=== PATIENT | female | born 1935 | race Caucasian/White ===

== ENCOUNTER 2019-02-08 05:52 | Inpatient (IN) ==
--- NOTE | 2019-02-08 06:27 | PROVIDER DOCUMENTATION ---
HPI-General Adult - General Chief Complaint: Weakness Stated Complaint: leg pain Time Seen by Provider: 02/08/19 06:27 Source: patient Allergies/Adverse Reactions: Patient Allergies Allergy/AdvReac Type Severity Reaction Status Date / Time cefaclor [From Ceclor] Allergy Severe RASH Verified 02/08/19 06:47 cephalexin monohydrate * Allergy Severe RASH Verified 02/08/19 06:47 [From Keflex] doxycycline Allergy Severe RASH Verified 02/08/19 06:47 erythromycin base Allergy Severe NAUSEA/VOMI Verified 02/08/19 06:47 [Erythromycin Base] TING Penicillins Allergy Severe RASH Verified 02/08/19 06:47 tetracycline [Tetracycline] Allergy Severe RASH Verified 02/08/19 06:47 chlorpheniramine maleate * Allergy Intermediate Unknown Verified 02/08/19 06:47 [From Endal] codeine [From Endal] Allergy Intermediate Unknown Verified 02/08/19 06:47 codeine phosphate * Allergy Intermediate Unknown Verified 02/08/19 06:47 [From Endal] guaifenesin [From Endal] Allergy Intermediate Unknown Verified 02/08/19 06:47 loratadine Allergy Intermediate DIARRHEA Verified 02/08/19 06:47 [From Claritin-D 12 Hour] phenylephrine HCl * Allergy Intermediate Unknown Verified 02/08/19 06:47 [From Endal] phenylpropanolamine HCl * Allergy Intermediate Unknown Verified 02/08/19 06:47 [From Endal] pseudoephedrine sulfate * Allergy Intermediate DIARRHEA Verified 02/08/19 06:47 [From Claritin-D 12 Hour] apple [Apple] Allergy Unknown RASH Verified 02/08/19 06:47 celery [Celery] Allergy Unknown Unknown Verified 02/08/19 06:47 peanut Allergy Unknown Unknown Verified 02/08/19 06:47 grains Allergy Intermediate RASH Uncoded 02/08/19 06:47 Home Medications: Home Medication List Medication Instructions Recorded Confirmed Last Taken Type Fish Oil/Dha/Epa [Fish Oil 1,200 1 each PO TID 08/04/12 02/08/19 10/11/17 14:00 History mg Fish Oil] Fluticasone 27.5 Mcg Nasal Spr 4.5 gm MISC BID 08/04/12 02/08/19 10/11/17 07:00 History [Veramyst Nasal [place]] Hydralazine [Apresoline] 25 mg PO QAM 10/08/12 04/14/19 12/15/17 07:00 History Lisinopril 20 mg PO DAILY 08/04/12 02/08/19 10/11/17 07:00 History Metoclopramide [Reglan] 10 mg PO QHS 08/04/12 02/08/19 10/10/17 20:00 History Montelukast [Singulair] 10 mg PO DAILY 08/04/12 02/08/19 10/11/17 07:00 History Multivitamin/Iron/Folic Acid 1 each PO DAILY 08/04/12 02/08/19 10/11/17 07:00 History [Multi Complete-Iron Tablet] Olopatadine HCl [Patanase] 30.5 gm NS BID 08/04/12 02/08/19 09/04/12 09:00 History Polyethylene Glycol 3350 [Miralax] 527 gm PO DAILY 08/04/12 02/08/19 10/11/17 07:00 History Sucralfate [Carafate] 1 gm PO TID 08/04/12 02/08/19 10/11/17 14:00 History Warfarin [Coumadin] 5 mg PO QHS #30 tablet 09/05/12 02/08/19 10/10/17 20:00 Rx Albuterol Sulfate Inhaler 2 puff INH Q6H PRN PRN 10/11/17 02/08/19 Unknown History [Ventolin Hfa] Alprazolam 0.5 mg PO BID 10/11/17 02/08/19 10/11/17 07:00 History Bisacodyl 10 mg RC PRN PRN 10/11/17 02/08/19 Unknown History Fexofenadine [Nae] 180 mg PO DAILY 10/11/17 02/08/19 10/11/17 07:00 History Furosemide [Lasix] 80 mg PO DAILY 10/11/17 02/08/19 10/11/17 07:00 History Guaifenesin [Mucinex] 600 mg PO Q12HR 10/11/17 02/08/19 10/11/17 07:00 History Mometasone Nasal [place] [Nasonex 1 puff CHON BID 10/11/17 02/08/19 10/11/17 07:00 History Nasal [place]] Tramadol HCl [Ultram] 50 mg PO BID 10/11/17 02/08/19 10/11/17 07:00 History Umeclidinium Prim [Incruse 1 puff IH DAILY 10/11/17 02/08/19 10/11/17 07:00 History Ellipta] - History of Present Illness -Gen Adult Nature of Presenting Problems: Pt is a 83 y/o female who presents with c/o pain in her legs and generalized weakness. As per the pt she felt weak and could not get out of her chair and hence called EMS. The pt also c/o pain in her legs and they have been getting big. Has been more SOB than usual. Denies any CP or fever. Per pt was treated with abxs last week and thought she was getting better, but today she felt extremely weak. Denies any GI or urinary symptoms. Pt has hx of PE And is currently on coumadin. Location of Pain/Injury: reports: none Pain Radiation: reports: no radiation Quality of Pain: reports: aching Severity: reports: moderate Onset/Duration: reports: abrupt, just prior to arrival Timing: reports: still present Context/Activities at Onset: reports: light activity Modifying Factors: improves with: nothing Associated Symptoms: reports: denies symptoms, fatigue, shortness of breath. denies: chest pain, cough Similar Symptoms Previously?: No Recently seen or treated by another doctor?: No Review of Systems - Adult - REVIEW OF SYSTEMS - ADULT Constitutional: reports: see HPI Eyes: reports: no symptoms reported Ears, Nose, Mouth & Throat: reports: no symptoms reported Cardiovascular: reports: see HPI Respiratory: reports: see HPI Gastrointestinal: reports: no symptoms reported Genitourinary: reports: no symptoms reported Musculoskeletal: reports: muscle weakness Integumentary: reports: no symptoms reported Neurological: reports: no symptoms reported Psychiatric: reports: no symptoms reported Endocrine: reports: no symptoms reported Hematologic/Lymphatic: reports: no symptoms reported Allergic/Immunologic: reports: no symptoms reported All Other Systems: Reviewed and Negative Past History - Adult - PAST MEDICAL HISTORY-ADULT Review of Records: reports: Old Records Reviewed, Nursing Assessment Review Cardiovascular: reports: CHF Respiratory: reports: COPD Physical Exam-General - PHYSICAL EXAM-ADULT Initial Vital Signs Reviewed: Yes - CONSTITUTIONAL General Appearance: alert, no apparent distress - EYES Eyes: PERRL/EOMI - HEAD, EARS, NOSE, MOUTH & THROAT HENMT: normocephalic/atraumatic, moist mucous membranes - NECK Neck: supple - RESPIRATORY Respiratory: lungs clear, crackles (at lung bases) - CARDIOVASCULAR Cardiovascular: normal peripheral pulses, regular rate, rhythm, no JVD, other (3+ pitting pedal edema). negative: no edema - GASTROINTESTINAL (ABDOMEN) Abdominal Exam: normal bowel sounds, non tender - GENITOURINARY Rectal Exam: normal exam (no stool in rectum) - MUSCULOSKELETAL Back Exam: no CVA tenderness Extremity: pedal edema - SKIN Integumentary: pallor - NEUROLOGIC Neurologic: grossly normal - PSYCHIATRIC Psych/Mental Status: normal mood/affect, oriented x 3 Progress - PLAN OF CARE/RESULTS Progress/Plan/Lab Results: Vital Signs - 8 hr 02/08/19 06:17 Temperature 99.1 F Pulse Rate 70 Respiratory Rate 22 Blood Pressure 101/78 O2 Sat by Pulse Oximetry 100 pt has Hemoglobin of 5.9, will get PT/INR, PTT, Type and screen, stool for occult blood. Will transfuse 2 units of PRBC. 07:[address] Pt signed out to Dr Pineda. Result Diagrams: 02/14/19 04:57 02/14/19 04:57 - CONSULTS/PCP/HOSPITALIST Notification #1 *Consult/PCP/Hospitalist*: Gely HANKS Time Discussed: 09:29 Consult Disposition: Will see in ED Departure - Departure Date of Disposition Decision: 02/08/19 Time of Disposition Decision: 09:32 DIAGNOSIS: Severe anemia Disposition: ADMITTED INPATIENT 09 Certified Medical Emergency: Emergent Condition: Stable - Critical Care Note This patient required my direct & personal management of CC.: No Attestation - Physician/ [facility] Attestation Patient care was provided by Advanced Practice Provider:: No The physician spent face to face time with patient:: Yes Advanced Practice Provider documentation review:: Supervising physician onsite and consulted in the evaluation and care of this patient. The physician did have a face to face encounter with the patient.
--- NOTE | 2019-02-08 06:54 | Diag Imaging Result Doc PS360 ---
EXAM: CHEST-1 VIEW 02/08/2019 HISTORY: SOB TECHNIQUE: AP portable at 0639 COMMENT: There is cardiomegaly. There is a prominent epicardial fat pad on the left. Considering differences in technique and inspiration there has been no significant change since 04/23/2018. IMPRESSION: Cardiomegaly. Electronically signed by Hill Brewster 02/08/2019 6:51 AM
[2019-02-08 07:19] LABS: BASO# 0.03 X1000 (0.0-0.2); BASO% 0.3 % (0.0-0.8); EOS# 0.27 X1000 (0.0-0.7); EOS% 2.3 % (0.0-10.0); HEMATOCRIT 19.9 % (37.0-47.0); LYMPH% 12.1 % (20.5-51.1); MCH 25.3 PG (27-31); MCHC 29.6 g/dL (33-37); MCV 85.4 FL (81-99); MONO# 0.98 X1000 (0.11-0.59); MONO% 8.5 % (1.7-9.3); MPV 10.2 FL (7.4-10.4); NEUT# 8.88 X1000 (1.4-6.5); NEUT% 76.8 % (42.2-75.2); PLT 395 X1000 (130-400); RBC 2.33 XMIL (4.2-5.4); RDW 18.1 % (11.5-14.5); WBC 11.56 X1000 (4.8-10.8)
[2019-02-08 07:22] LABS: HEMOGLOBIN 5.9 g/dL (12.0-16.0)
[2019-02-08 07:32] LABS: ALB/GLOB RATIO 0.9; ALBUMIN 3.4 g/dL (3.5-5.0); CALCIUM 9.5 mg/dL (8.8-10.2); POTASSIUM 4.4 mmol/L (3.5-5.1); TOTAL BILIRUBIN 0.27 mg/dL (0.20-1.00); TOTAL PROTEIN 7.1 g/dL (6.3-8.3)
[2019-02-08 07:44] LABS: URINE SOURCE CATH
[2019-02-08 07:57] LABS: BILIRUBIN URINE NEGATIVE (NEGATIVE); BLOOD URINE NEGATIVE (NEGATIVE); COLOR YELLOW; GLUCOSE URINE NEGATIVE (NEGATIVE); KETONE URINE NEGATIVE (NEGATIVE); LEUKOCYTES URINE SMALL (NEGATIVE); NITRITE URINE NEGATIVE (NEGATIVE); PH URINE 5.5; PROTEIN URINE TRACE mg/dL (NEGATIVE); SP GRAVITY URINE 1.013; TURBIDITY URINE HAZY (CLEAR); UROBILINOGEN URINE NORMAL (NORMAL)
[2019-02-08 07:58] LABS: UR EPITHELIAL CELLS >10 /HPF (<10); URINE BACTERIA NEGATIVE /HPF; URINE RBC <10 /HPF (<10)
[2019-02-08 08:08] LABS: INR 2.37; PROTIME 27.6 Seconds (11.0-16.0)
[2019-02-08 08:09] LABS: PTT 69.8 Seconds (22.3-41.8)
[2019-02-08] MEDS ORDERED: VITAMIN K 10 MG in NS 50 ML IV ONE (09:41)
[2019-02-08] MEDS ORDERED: TYLENOL PO PRN (09:52)
[2019-02-08] MEDS ORDERED: NS 1,000 ML ONE (09:55)
[2019-02-08 09:58] LABS: RETIC% 4.01 % (0.8-2.1); RETIC-HE 23.2 PG (28.2-36.6)
[2019-02-08 10:20] LABS: IRON SATURATION 9 %; TIBC 329 ug/dL; TOTAL IRON 28 ug/dL (49-151); UNBOUND IRON 301 ug/dL (112-346)
[2019-02-08 10:32] LABS: UR CREAT RANDOM 97.2 mg/dL (11-20)
[2019-02-08 10:35] LABS: FERRITIN 15 ng/mL (13-150)
[2019-02-08] MEDS ORDERED: VENOFER 500 MG in NS 250 ML IV ONE (10:44)
[2019-02-08] MEDS: NS 1,000 ML IV SCH ×2 (10:50→23:13)
[2019-02-08] MEDS: DUONEB (A & A) INH SCH ×4 (10:53→22:44)
--- NOTE | 2019-02-08 10:55 | Diag Imaging Result Doc PS360 ---
EXAM: US RENAL 2 (RETROPER) COMPLETE 02/08/2019 HISTORY: dee TECHNIQUE: Renal ultrasound COMMENT: There is a 3 cm stone in the gallbladder. The right kidney is 8 x 3.7 x 4.2 cm the left is 8.3 x 4.5 x 5 cm. The urinary bladder is not distended. There is no evidence of hydronephrosis or mass. IMPRESSION: No evidence of obstructive uropathy. Cholelithiasis. Electronically signed by Hill Brewster 02/08/2019 10:53 AM
--- NOTE | 2019-02-08 11:00 | Diag Imaging Result Doc PS360 ---
EXAM: US ABDOMEN-COMPLETE 02/08/2019 HISTORY: severe anemia; MAGALY TECHNIQUE: Abdominal ultrasound COMMENT: The study is technically suboptimal due to the patient's body habitus and clinical condition. There is a large stone in the neck of the gallbladder measuring almost 3 cm in diameter. There is no evidence of para cholecystic fluid or wall thickening. There is no sonographic Gallardo sign. The aorta, inferior vena cava, and pancreas are not well demonstrated. The liver is slightly heterogeneous in echotexture, and is not entirely well demonstrated. There are no abnormal fluid collections. The common bile duct is measured at 7 mm. There is a 3.2 cm cyst arising from the anterior left renal cortex. The spleen is enlarged measuring 13.9 cm. The portal vein could not be evaluated. IMPRESSION: Cholelithiasis. Splenomegaly. Hepatic steatosis versus cirrhosis. Electronically signed by Hill Brewster 02/08/2019 10:57 AM
[2019-02-08] MEDS: PROTONIX 80 MG in NS 80 ML IV SCH ×2 (12:01→20:45)
[2019-02-08 12:09] LABS: HEMOGLOBIN A1C 4.6 % (4.8-6.0)
--- NOTE | 2019-02-08 12:31 | GASTROENTEROLOGY CONSULTATION ---
DATE: 02/08/2019 CONSULTING PHYSICIAN: Dr. Cole. REASON FOR CONSULT: Severe anemia. HISTORY: This is an 83-year-old, white female who carries a diagnosis of CHF and has history of pulmonary embolism, and has been on warfarin. She was brought to the emergency room after she was unable to get up from her chair, and she has been very weak and lethargic with these complaints. When she was evaluated in the emergency room, she was found to have severe anemia. Her hemoglobin was 5.9 with a hematocrit of 19.9. On further questioning, she did say that she has had a "virus" and had an episode of nausea, vomiting, and diarrhea for a day. She did have some dark stool which she thought she was having dark stool because she has been drinking a lot of marcelo juice and prune juice along with the red meat. She has not seen any bright red blood per rectum but has had some epistaxis. She tells me that she has been blowing her nose and has seen the bright red blood on the tissue. She has recently been on antibiotics for a "sinus infection". Her last dose was yesterday. She, however, denies any abdominal pain or abdominal cramps. Has not had any indigestion. Denies any heartburn or reflux symptoms. Has not had any dysphagia or odynophagia. Her appetite is good. She is eating well and she has not lost any weight. She denies any dysuria but has polyuria. Denies any hematuria. She has not had any fever or chills. Has not had any headache or dizziness but has felt very weak. She has been complaining of some sore throat. Denies any sores in her mouth. She denies any problem with vision. PAST MEDICAL HISTORY: Significant for COPD and CHF. Also reports that she has history of pulmonary embolism and has been on long-term anticoagulation. SOCIAL HISTORY: She lives by herself. Does not smoke. Does not drink. Does not do illicit drugs. FAMILY HISTORY: Noncontributory. HOME MEDICATIONS: She has been on albuterol, alprazolam, bisacodyl, Nae, fish oil, fluticasone, Lasix, Mucinex, Apresoline, lisinopril, Reglan, Singulair, multivitamin, PATANASE, MiraLAX, Carafate, Ultram, warfarin, and Ellipta. ALLERGIES: Claims to be allergic to multiple medication. Lists were reviewed and they were reviewed in the chart and the computer. REVIEW OF SYSTEMS: As per HPI as above. PHYSICAL EXAMINATION: On examination, very pleasant, white female, overweight. She is lying in bed. She is conscious, alert, appears to be in no distress. Vitals: Temperature 97.3 degrees, pulse 81 per minute, breathing 18, blood pressure 115/81. She weighs about 225 pounds. Head is atraumatic, normocephalic. Eyes: Conjunctivae are pale. Sclerae anicteric. Nares are patent. No discharge. Has got nasal cannula in place. Mouth: Buccal mucosa is moist. Throat is normal. Neck is supple. No lymphadenopathy or thyromegaly. Chest: Bilaterally symmetrical. It is moving with respirations. Breath sounds are audible bilaterally. No rhonchi or crepitations could be heard. Heart: S1 and S2 are audible. No murmur could be appreciated. Abdomen is obese but soft and nontender. I could not appreciate masses or visceromegaly. No ascites noted. Bowel sounds are audible. No pedal edema, cyanosis, or clubbing was noted. [employer] was grossly intact. No sensory or motor deficit. LABORATORY DATA: Labs reviewed which showed WBC of 11.56, hemoglobin 5.9, hematocrit 19.9, MCV 85.4, platelets were 395,000. PTT was 27.6, INR 2.37, PTT 69.8, with D-dimer of 2.85. Sodium 139, potassium 4.4, chloride 102, bicarb is 25, BUN is 64, creatinine 3.0, glucose 119. Transaminases were normal. Albumin was 3.4. Urinalysis is negative. Ultrasound of the abdomen shows evidence of cholelithiasis. She has about a 3 cm diameter stone in the neck of the gallbladder without any evidence of acute cholecystitis. She does have evidence of splenomegaly and possible hepatic steatosis. Renal ultrasound was also done today which revealed no evidence of obstructive uropathy. IMPRESSION: This is an 83-year-old, white female who has been on Coumadin for her history of pulmonary embolism as claimed by the patient. She has been on an antibiotic for 7 days. The last dose was yesterday. Has presented with a history of dark stool and was found to be anemic. Most likely, she has acute gastrointestinal bleed and anemia secondary to gastrointestinal bleed. She apparently appears to have lost a significant amount of blood. She has been symptomatic. She has had symptomatic anemia. She does not seem to be actively bleeding now. She is in the process of getting hemodynamic resuscitation. She is receiving fluid. Blood has been ordered for transfusion. She has also been scheduled to start proton pump inhibitor infusion. I would continue the current management and continue to reverse her coagulopathy which is secondary to Coumadin. Then, when stabilized, she may benefit from endoscopic evaluation for diagnostic and therapeutic purposes. She apparently has never had an esophagogastroduodenoscopy or colonoscopy. I have explained to her the findings and plan. She understands. She is reluctant to proceed at this point. She will be followed. An urgent endoscopy may be required if she shows any signs of acute hemorrhage. cc: MD Gal Bernal MD
--- NOTE | 2019-02-08 13:08 | HISTORY AND PHYSICAL ---
PRIMARY CARE PHYSICIAN: Dr. Gal Lainez PRIMARY ROOF BOLTER: Dr. Villeda PRIMARY REHABILITATION CONSTRUCTION SPECIALIST: Dr. Hartley CHIEF COMPLAINT: Weakness, lower extremity achiness and swelling and just worsening fatigue and weakness. HISTORY OF PRESENT ILLNESS: Ms. Nancy Pool is an 83-year-old female with a history of morbid obesity and a BMI of 38.6, congestive heart failure, COPD or asthma, peptic ulcer disease, pulmonary emboli on Coumadin therapy and that was diagnosed in 2011, is now here with complaints of 6 to 8 months' worth of weakness and fatigue that has just progressively been worsening. Apparently she could not get out of the chair today and had to call paramedics. She lives alone. She does have a neighbor who helps her out. She stays short of breath, so that is no change. She states she has not been in a bed to sleep for 5 years because she sleeps sitting straight up. Her legs have been achy and more swelling, a little redness in the lower extremities. No open wounds, though. She does have sacral wounds that she has complained about which we will visualize once she is in a room with some privacy. She states that she has been having black stools for years but denies any bright red blood. She did have, around 1 or 2 weeks ago, she states that she was sick with vomiting and diarrhea but could not tell me the color. She also says around a week ago she was diagnosed with a sinus infection because she had head congestion with head which she was initiated on antibiotics, but I do not believe she went into her primary care provider's office for the diagnosis. She has been essentially homebound and receiving home health, and I think all communication and assessment is done through the home health nurse. The antibiotic is unknown at this time. She is not sure what all of her medications are. Evaluation of the weakness and fatigue, she had a CBC which revealed that she had a hemoglobin of 5.9 and hematocrit of 19.9. Hemodynamics are actually stable. She is on the Coumadin, and the INR is in range of 2.37. No obvious signs of bleeding. The stool for the occult blood was actually negative, although she states that she has had black stools for years. She has an elevated D-dimer and with the history of PE from 2011, a VQ scan of the chest was ordered, and she is refusing that. Given the abdominal tenderness with palpation and the black stools for years and the anemia, a CT of the abdomen and pelvis was ordered, which she refused that as well, even after being offered Ativan to help with her nerves. She is going for an ultrasound of the abdomen and an ultrasound of the lower extremities. With her report of congestive heart failure and the lower extremity edema swelling, she will have an echocardiogram as well. For the anemia, we are going to reverse the Coumadin with vitamin K, and she is going to receive 2 units of packed red blood cells. She is with an elevated white blood cell count but no obvious source of infection at this time. A lactate has been ordered but not resulted yet. Chest x-ray does not reveal any pneumonia. The urinalysis does not reveal any UTI, so she will have blood cultures pending, and it could be sacral decubitus or it could be lower extremity cellulitis, as there is some redness in the lower extremities. We will transfer her to [facility] for closer observation and continued workup. We will also consult Gastroenterology. Also noted that she is in acute kidney injury with a creatinine of 3.0, and it looks like she does have a history of CKD stage 3 at least since 2012 or even 2011, but she is acute on chronic kidney disease. PAST MEDICAL HISTORY: 1. Allergic rhinitis. 2. Asthma/COPD. 3. Peptic ulcer disease. 4. GERD. 5. Gout. 6. Hypertension. 7. Depression. 8. CKD stage 3. 9. History of PE in 2011. 10.Congestive heart failure reported. 11.Morbid obesity with a BMI of 38.6. PAST SURGICAL HISTORY: Umbilical hernia repair. SOCIAL HISTORY: Denies tobacco, alcohol or illicit drug use. She lives at home by herself with her dog. She has neighbors that are available for assistance. She uses a walker at home to get around. With her first , they did farming and logging, otherwise no work, and they did not have any children. FAMILY HISTORY: Her mother was in the 80s with a myocardial infarction. Her father was 62 with a myocardial infarction. Her brother was 62 with a myocardial infarction. She knows of no other medical history from her family. ALLERGIES: Ceclor, Keflex, doxycycline, erythromycin, penicillin, tetracycline, Endal, codeine, guaifenesin, Claritin D, phenylephrine, phenylpropanolamine, pseudoephedrine, apples, celery, peanuts and grains. HOME MEDICATIONS: She takes albuterol 2 puffs every 6 hours p.r.n., Xanax 0.5 mg p.o. twice daily, bisacodyl 10 mg suppository p.r.n., Nae 180 mg p.o. daily, fish oil 1200 mg p.o. t.i.d., fluticasone 4.5 g twice a day, Lasix 80 mg p.o. daily (we are going to hold that). Apparently she has been taking guaifenesin 600 mg p.o. every 12 hours, but that is actually listed on her allergies, and we are going to hold that. Apresoline 25 mg p.o. daily, we will hold that. Lisinopril 20 mg p.o. daily, we are going to hold that as well. Reglan 10 mg p.o. night, and we can continue that. Nasonex 1 puff twice daily, and we can continue that. Singular 10 mg p.o. daily continue. Multivitamin with iron once daily, we will continue. Patanase 30.5 g nasally twice daily, we will continue that. MiraLAX 17 g p.o. daily, continue. Carafate 1 g p.o. t.i.d., we have already continued that with an increased frequently. Ultram 50 mg p.o. twice daily. Ellipta 1 puff daily, hold that. Coumadin 5 mg p.o. nightly, hold that. REVIEW OF SYSTEMS: A 14-point review of systems are complete, and all were negative except for those mentioned in the above HPI. She denies taking any medications that are kidney damaging or can cause increased risk for stomach ulcer such as ibuprofen, she denies. PHYSICAL EXAMINATION: VITAL SIGNS: Temperature is 98.4, heart rate 72, respiratory rate 19, blood pressure 121/58, O2 saturation is 100% on 3 L nasal cannula. GENERAL: Ms. Nancy Pool is an 83-year-old female. She is in no acute distress. She is able to answer questions appropriately. HEENT: Atraumatic and normocephalic. Pupils are equal, round and reactive to light. Extraocular movements were intact. Mucous membranes are dry. NECK: Trachea midline. CARDIOVASCULAR: S1 and S2. Regular rate and rhythm. No rubs, gallops or murmurs. There is 2+ lower extremity edema. There are +3 dorsalis pedal pulses, +2 radial pulses. Negative JVD or carotid bruits. PULMONARY: Clear to auscultation with bilateral breath sounds. No accessory muscle use or work of breathing noted and tolerating 3 L nasal cannula. GASTROINTESTINAL: Soft in all 4 quadrants, tender in all 4 quadrants, but she is more tender in the bilateral upper quadrants. Positive bowel sounds x4 but hypoactive. NEUROLOGICAL: Alert and oriented x3. Follows commands. Decrease in strength in the lower extremities with tenderness. SKIN: Warm, dry and intact except for lower extremities. Also reported sacral wounds. We will have to review that once she is in a private situation. We will assess that. Reported yeast in her abdominal folds and groin folds. Also bilateral lower extremities with redness of the skin, scaliness and poor hygiene of the feet. DIAGNOSTIC DATA: White blood cells 11,000, hemoglobin 5.9, hematocrit 19.9, platelet count 395. INR is 2.37. PTT is 69.8. D-dimer is 2.85. Sodium is 139, potassium 4.4, BUN is 64, creatinine 3.0, glucose 119, calcium 9.5. Iron is 28, total iron binding capacity is 329, saturation 9, ferritin 15. Bilirubin 0.27, AST is 26, ALT is 11, LDH is 197. ProBNP is 297. Albumin 3.4. Vitamin B12 is 802. Folate 6.5. Urinalysis with trace protein, small leukocytes, 10 to 20 white blood cells. Urine random creatinine is 97.2, urine protein 24.2, urine sodium 37, random urea of the urine is 731. IMAGING: Abdominal ultrasound with cholelithiasis, splenomegaly, hepatic steatosis versus cirrhosis. Renal ultrasound with no evidence of obstructive uropathy, cholelithiasis. Chest x- ray with cardiomegaly. ASSESSMENT AND PLAN: 1. Severe anemia, now with iron deficiency anemia, possible anemia from GI blood loss, with peptic ulcer disease history and reports of black stool despite negative Hemoccult. Anemia possibly from blood loss due to Coumadin therapy for PE. We will serial hemoglobin and hematocrit. She is going to get 2 units of packed red blood cells. She is going to get a dose of 500 mg of IV iron. She has some folate deficiency. We will give her IV folic acid. She refused an abdominopelvic CT due to severe anxiety, so she will be on a Protonix drip. Clear liquids for now. Carafate scheduled. N.p.o. after midnight. Withholding Coumadin for now, and Coumadin is going to be reversed with vitamin K. The abdominal ultrasound shows cholelithiasis, splenomegaly and hepatic steatosis versus cirrhosis. 2. Acute kidney injury on top of chronic kidney disease stage 3. We will get some IV fluid hydration. Iron studies performed. Renal ultrasound does not show any obstructive uropathy. It does show some cholelithiasis. 3. History of pulmonary emboli. Continues with shortness of breath, lower extremity swelling with some redness and achiness, with an elevated D-dimer. Coumadin is being held due to the severe anemia. She is refusing to have a VQ scan. Of course, she is still refusing for CT scan, but her kidney function is too bad for a CTA of the pulmonary artery system. So all we can do right now is get an ultrasound of the lower extremities to follow up for clot. 4. Leukocytosis. Urinalysis is negative for urinary tract infection. Chest x- ray is negative for pneumonia. Blood cultures have been ordered. The lower extremities possibly some cellulitis but is not extremely obvious. They are warm and red and tender. But she also has complaints of sacral wounds and yeast in her folds, which we will get Wound Care to see her for. There is a possibility there could be some sort of infection from that. She was not in a situation where she could be assessed, but we will get her assess on her sacrum and her abdominal folds in privacy. She just finished taking antibiotics for what she says was a sinus infection, completed today. 5. Hyperglycemia but denies having diabetes. We will do a hemoglobin A1c. 6. Asthma or chronic obstructive pulmonary disease. Continue with nebulizers, bronchodilators, and oxygen as needed. I would not doubt if there is some form of obstructive sleep apnea given her body habitus but no CPAP at home. 7. Hypertension. We are going to hold her home medications, as they can be harmful to the kidneys for now, but her blood pressure is stable, not extremely elevated. 8. Gastroesophageal reflux disease with peptic ulcer disease, of course on a proton pump inhibitor. 9. Bilateral lower extremity cellulits. Will start IV antibiotic therapy. 10. Depression. We will continue her antidepressants. 11.Allergic rhinitis. Continue her medications for that. 12.Morbid obesity with a body mass index of 38.6. Discussion of an appropriate diet and exercise. She states she tries to get up as much as she can, but she is alone. She does get home health. She uses a walker, but she has progressively gotten weaker, so we are going to have Physical Therapy help her with that. 13.Progressive weakness. Again, physical therapy. But it is likely due to the anemia. 14.DVT prophylaxis with SCDs given the severe anemia. 15.Reported sacral decubitus. Wound Care consulted. Apparently yeast in the folds. Dictated by LATONYA Haro for Jami Cole MD cc: LATONYA Haro MD Alan Walker, MD I performed a face to face encounter on the patient. I reviewed all labs and imaging on the patient. I agree with the H&P as dictated. The patient states that she called the EMS because she discovered that she could not get out of bed today due to severe weakness. She states that she lives alone and takes care of herself. On exam, the patient is alert and oriented x 3. She is morbidly obese with multiple skin folds. Her breath sounds are clear to auscultation bilaterally. Her lower extremities are erythematous with dry flaking skin. No edema noted. The patient was noted to have a hemoglobin of 5.9. She denied having blood in her stool. The patient will be admitted to the CICU and will receive 2 units of packed red blood cells and be started on a protonix drip. GI has been consulted. Will also initiate antibiotics for the lower extremity cellulitis. She will also receive gentle IVF hydration due to her acute kidney injury. Will avoid nephrotoxic medications. The patient reports that she wants to be a DNR level 1 and that code status has been updated in the computer. SHANNAN
--- NOTE | 2019-02-08 13:42 | Diag Imaging Result Doc PS360 ---
EXAM: LUNG SCAN / VQ 02/08/2019 HISTORY: h/o PE; elevated ddimer; severe anemia TECHNIQUE: Ventilation/perfusion lung scan, 38.9 mCi of technetium 99m DTPA aerosol and 5.8 mCi of technetium 99m MAA intravenously. COMMENT: There are limited number of views due to the patient's claustrophobia. There is no evidence of ventilation/perfusion mismatch or perfusion defect. IMPRESSION: Low probability for pulmonary embolus. Electronically signed by Hill Brewster 02/08/2019 1:40 PM
[2019-02-08 16:03] LABS: HEMATOCRIT 22.5 % (37.0-47.0); HEMOGLOBIN 6.7 g/dL (12.0-16.0)
[2019-02-08] MEDS: CARAFATE LIQUID PO SCH ×2 (16:07→20:44)
[2019-02-08] MEDS: PULMICORT INH SCH (19:38)
[2019-02-08] MEDS: ZOFRAN IV PRN (19:59)
[2019-02-08 20:10] LABS: HEMATOCRIT 24.4 % (37.0-47.0); HEMOGLOBIN 7.6 g/dL (12.0-16.0)
[2019-02-08] MEDS: FLONASE MISC SCH (20:44)
[2019-02-08] MEDS: XANAX PO SCH (20:44)
[2019-02-08] MEDS: PATIENT'S OWN MED NAS SCH (20:48)
[2019-02-08] MEDS ORDERED: ULTRAM PO SCH (21:00)
[2019-02-08] MEDS ORDERED: NASONEX NASAL SPRAY NAS SCH (21:00)
[2019-02-08] MEDS ORDERED: REGLAN PO SCH (21:00)
[2019-02-08] MEDS: AZACTAM 0.5 GM in NS 50 ML IV SCH (22:01)
[2019-02-08] MEDS: FOLIC ACID 1 MG in NS 50 ML IV SCH (22:01)
[2019-02-09 01:30] LABS: HEMATOCRIT 25.3 % (37.0-47.0); HEMOGLOBIN 7.7 g/dL (12.0-16.0)
[2019-02-09] MEDS: DUONEB (A & A) INH SCH ×6 (03:06→22:57)
[2019-02-09] MEDS: AZACTAM 0.5 GM in NS 50 ML IV SCH ×3 (03:20→21:16)
[2019-02-09] MEDS: CARAFATE LIQUID PO SCH ×4 (03:20→21:16)
[2019-02-09 05:29] LABS: BASO# 0.04 X1000 (0.0-0.2); BASO% 0.4 % (0.0-0.8); EOS# 0.07 X1000 (0.0-0.7); EOS% 0.8 % (0.0-10.0); HEMATOCRIT 23.3 % (37.0-47.0); HEMOGLOBIN 7.2 g/dL (12.0-16.0); IMM GRAN# 0.02 X1000 (0.0-0.04); IMM GRAN% 0.2 % (0.0-0.5); LYMPH# 1.03 X1000 (1.2-3.4); LYMPH% 11.1 % (20.5-51.1); MCH 26.1 PG (27-31); MCHC 30.9 g/dL (33-37); MCV 84.4 FL (81-99); MONO# 0.83 X1000 (0.11-0.59); MPV 10.3 FL (7.4-10.4); NEUT# 7.28 X1000 (1.4-6.5); NEUT% 78.5 % (42.2-75.2); PLT 351 X1000 (130-400); RBC 2.76 XMIL (4.2-5.4); RDW 16.9 % (11.5-14.5); WBC 9.27 X1000 (4.8-10.8)
[2019-02-09] MEDS: NS 1,000 ML IV SCH ×2 (05:50→22:04)
[2019-02-09] MEDS: PROTONIX 80 MG in NS 80 ML IV SCH ×2 (05:50→15:14)
[2019-02-09 05:51] LABS: ALB/GLOB RATIO 0.8; ALBUMIN 2.8 g/dL (3.5-5.0); CALCIUM 8.4 mg/dL (8.8-10.2); CREATININE 2.2 mg/dL (0.5-0.9); MAGNESIUM 2.2 mg/dL (1.5-2.7); TOTAL BILIRUBIN 0.31 mg/dL (0.20-1.00); TOTAL PROTEIN 6.1 g/dL (6.3-8.3)
[2019-02-09 06:08] LABS: PTT 55.7 Seconds (22.3-41.8)
[2019-02-09 06:09] LABS: INR 1.47; PROTIME 18.9 Seconds (11.0-16.0)
--- NOTE | 2019-02-09 07:01 | Diag Imaging Result Doc PS360 ---
EXAM: CHEST-PORTABLE HISTORY: sob TECHNIQUE: Portable chest single view COMPARISON: 02/08/2019 FINDINGS: Poor inspiratory effort. The heart is mildly prominent. Pulmonary edema remains. No pleural effusions identified. IMPRESSION: Persistent cardiomegaly with pulmonary edema Electronically signed by Иван Parsons 02/09/2019 6:59 AM
--- NOTE | 2019-02-09 07:28 | EKG Report ---
Test Performed on : 02/09/2019 07:23:34 AM Test Reason : anemia Blood Pressure : / mmHG Vent. Rate : 081 BPM Atrial Rate : 081 BPM P-R Int : 228 ms QRS Dur : 074 ms QT Int : 378 ms P-R-T Axes : 019 -06 022 degrees QTc Int : 439 ms Sinus rhythm. with 1st degree AV block. Otherwise normal ECG When compared with ECG of 08-FEB-2019 07:09, (Unconfirmed) No significant change was found Confirmed by Robert ZEPEDA, Choco ([id number]) on 02/09/2019 8:58:15 AM
[2019-02-09] MEDS: PULMICORT INH SCH ×2 (08:04→19:53)
[2019-02-09 08:17] LABS: HEMATOCRIT 24.8 % (37.0-47.0); HEMOGLOBIN 7.6 g/dL (12.0-16.0)
--- NOTE | 2019-02-09 09:54 | EKG Report ---
Test Performed on : 02/08/2019 07:09:04 AM Test Reason : ED. No order in [place] Blood Pressure : / mmHG Vent. Rate : 078 BPM Atrial Rate : 078 BPM P-R Int : 254 ms QRS Dur : 074 ms QT Int : 390 ms P-R-T Axes : 055 -07 012 degrees QTc Int : 444 ms Sinus rhythm. with 1st degree AV block. Otherwise normal ECG When compared with ECG of 11-OCT-2017 17:11, Previous ECG has undetermined rhythm, needs review Unconfirmed Result
[2019-02-09] MEDS: MIRALAX PO SCH (11:09)
[2019-02-09] MEDS: ALLEGRA PO SCH (11:24)
[2019-02-09] MEDS: XANAX PO SCH ×2 (11:24→21:16)
[2019-02-09] MEDS: SINGULAIR PO SCH (11:24)
[2019-02-09] MEDS: CENTRUM TABLET PO SCH (11:24)
[2019-02-09] MEDS: FLONASE MISC SCH ×2 (11:26→21:16)
[2019-02-09] MEDS: PATIENT'S OWN MED NAS SCH (11:26)
--- NOTE | 2019-02-09 12:41 | GASTROENTEROLOGY PROGRESS NOTE ---
DATE: 02/09/2019 SUBJECTIVE: Patient reports having a bowel movement today. Her Intake and Output report the stool was brown in color. She has had 2 units of packed red blood cells since admission. Hemoglobin today 7.6, hematocrit 24.8. OBJECTIVE: Vital Signs: Temperature 97.9 degrees, pulse 68, respirations 18, blood pressure 135/51. General: Patient is awake and alert, in no acute distress. LABORATORY: Hematology: hemoglobin 7.6, hematocrit 24.8 Coagulation: Pro- time 18.9, INR 1.47, PTT 55.7. Chemistry: Sodium 145, potassium 4.0, chloride 111, CO2 of 22, BUN 42, creatinine 2.2, glucose 118. Iron 28. ASSESSMENT AND PLAN: 1. Anemia. 2. Recent melena. 3. Anticoagulation for history of pulmonary embolism. We will continue to hold Coumadin. Monitor for active bleeding. Continue to monitor hemoglobin and hematocrit and transfuse further packed red blood cells as needed. We will plan to proceed with EGD, most likely tomorrow. I have discussed with the patient. She is reluctant because she is nervous about having procedures but states she will agree to upper endoscopy for further evaluation. Further plans will be made according to findings. I have discussed this case with Dr. Doshi. Dictated by LATONYA Franz for Rigo Doshi MD cc: LATONYA Moffett MD [facility]
--- NOTE | 2019-02-09 13:07 | PROGRESS NOTE ---
DATE: 02/09/2019 SUBJECTIVE: The patient has no major complaints. She is sitting up in bed. OBJECTIVE: Blood pressure 134/52, heart rate 83, respiratory 16, temperature 97.7 degrees and 100% on 2 L.Cardiovascular: Regular rate and rhythm. Pulmonary: Bilateral breath sounds. Clear to auscultation. GI: Soft, nontender, and nondistended. Bowel sounds are positive. PROBLEM LIST: 1. Symptomatic anemia. She has improved somewhat after transfusion. She is Hemoccult negative. She does have a history of PE and DVT, but it is over 10 years ago and has been a while. I am going to stop her Coumadin. She does not have evidence of PE currently. GI is following, and they are going to do an EGD but at this point tomorrow. Her INR was still up a little bit, although it has improved. 2. History PE and DVT. No active PE or DVT, and I think she could probably be taken off of Coumadin indefinitely at this point. 3. Urinary tract infection. She has a gram-negative caesar UTI so we will continue empiric antibiotics. I think she is on aztreonam based on her allergies. 4. Reported hyperglycemia. Her sugar though I do not know why her sugar is 118 to 119. I do not understand, 135, I do not find that particularly hyperglycemic. Her A1c is 4.6, and she is not diabetic. I don't think we need to monitor that anymore. DISPOSITION: Pending her clinical status, but overall she has improved. I am going to go and give her 1 more unit of blood since we are still a little bit on the low side. We will get a PT evaluation, and she will likely need rehab when she has stabilized. cc: Cedrick Lundy MD
--- NOTE | 2019-02-09 15:28 | ECHO REPORT ---
ORDER DATE: 02/08/2019 ECHOCARDIOGRAPHIC MEASUREMENTS: 1. Interventricular septum 1.1. 2. Left ventricular posterior wall 1.1. 3. Diastolic diameter 5.4. 4. Left atrium 3.9. 5. Aorta 2.8. SUMMARY: 1. Technically suboptimal study. Very poor acoustic window. 2. Aortic valve leaflets are trileaflet. 3. Pulmonic valve not well visualized. 4. Mitral valve was normal. 5. Tricuspid valve was normal. 6. Peak velocity across the aortic valve less than 2 m/sec. 7. There is no aortic stenosis or regurgitation. 8. There is trace to mild mitral regurgitation, mild tricuspid regurgitation. 9. Peak velocity across the tricuspid valve was 3.2 m/sec. 10. Pulmonary artery systolic pressure of 50 mmHg. 11. Optison was used to assess left ventricular systolic function. 12. Normal left ventricular cavity size. 13. Estimated ejection fraction of 65%. 14. There is no pericardial effusion or obvious intracardiac mass or thrombus seen. 15. Anterior echo-free space suggestive of pericardial fat pad noted. cc: MD Gely Jones CRNP
[2019-02-09] MEDS: FOLIC ACID 1 MG in NS 50 ML IV SCH (21:16)
[2019-02-09] MEDS: NON-FORMULARY BULK MED SCH (21:17)
[2019-02-10] MEDS: NS 1,000 ML IV SCH (00:20)
[2019-02-10] MEDS: PROTONIX 80 MG in NS 80 ML IV SCH ×3 (01:36→23:00)
[2019-02-10] MEDS: DUONEB (A & A) INH SCH ×6 (03:54→23:03)
[2019-02-10] MEDS: AZACTAM 0.5 GM in NS 50 ML IV SCH ×3 (04:17→20:46)
[2019-02-10 05:55] LABS: BASO# 0.06 X1000 (0.0-0.2); BASO% 0.7 % (0.0-0.8); EOS# 0.24 X1000 (0.0-0.7); EOS% 2.6 % (0.0-10.0); HEMATOCRIT 27.8 % (37.0-47.0); HEMOGLOBIN 8.5 g/dL (12.0-16.0); IMM GRAN# 0.05 X1000 (0.0-0.04); IMM GRAN% 0.5 % (0.0-0.5); LYMPH# 1.29 X1000 (1.2-3.4); MCH 26.2 PG (27-31); MCHC 30.6 g/dL (33-37); MCV 85.8 FL (81-99); MONO# 1.05 X1000 (0.11-0.59); MONO% 11.4 % (1.7-9.3); MPV 10.1 FL (7.4-10.4); NEUT% 70.8 % (42.2-75.2); PLT 318 X1000 (130-400); RBC 3.24 XMIL (4.2-5.4); RDW 17.4 % (11.5-14.5); WBC 9.19 X1000 (4.8-10.8)
[2019-02-10] MEDS: CARAFATE LIQUID PO SCH ×4 (06:00→20:58)
[2019-02-10 06:10] LABS: INR 1.26; PROTIME 16.8 Seconds (11.0-16.0)
[2019-02-10 06:29] LABS: CALCIUM 8.7 mg/dL (8.8-10.2); CREATININE 1.6 mg/dL (0.5-0.9); POTASSIUM 4.4 mmol/L (3.5-5.1)
[2019-02-10] MEDS: PULMICORT INH SCH ×2 (07:44→19:39)
[2019-02-10] MEDS: NON-FORMULARY BULK MED SCH ×2 (08:12→20:48)
[2019-02-10] MEDS: FLONASE MISC SCH ×2 (08:12→20:47)
[2019-02-10] MEDS ORDERED: DIPRIVAN 1% ONE (13:15)
[2019-02-10] MEDS ORDERED: FENTANYL ONE (13:17)
--- NOTE | 2019-02-10 14:47 | Extremity Venous Study ---
PROCEDURE NAME: Venous U/S Bilateral Legs - 02/08/2019 REQUESTING PHYSICIAN: Dr. Pineda. TRANSITIONS MANAGER RN: Jose. INDICATIONS: Pain, edema, and elevated D-dimer. EQUIPMENT: Porch Vivid E9 ultrasound system with a 9 L-D transducer. FINDINGS: Images of the bilateral lower extremity venous systems were obtained in both sagittal and transverse planes. Doppler was used to evaluate veins for spontaneity, phasicity, respiratory excursion, and digital augmentation. RESULTS: No obvious superficial or deep venous thrombosis noted to bilateral lower extremities. There is some reflux noted in the right common femoral vein. cc: MD Gely Philip CRNP
[2019-02-10] MEDS: MIRALAX PO SCH (15:36)
[2019-02-10] MEDS: XANAX PO SCH ×2 (15:37→20:58)
[2019-02-10] MEDS: CENTRUM TABLET PO SCH (15:37)
[2019-02-10] MEDS: SINGULAIR PO SCH (15:37)
[2019-02-10] MEDS: ALLEGRA PO SCH (15:38)
[2019-02-10] MEDS ORDERED: VERSED ONE (15:55)
--- NOTE | 2019-02-10 17:20 | OPERATIVE NOTE ---
PROCEDURE DATE: 02/10/2019 PROCEDURE: Esophagogastroduodenoscopy with biopsy. PREOPERATIVE DIAGNOSES: 1. Acute gastrointestinal bleed. 2. Anemia secondary to gastrointestinal bleed. POSTOPERATIVE DIAGNOSES: 1. Stricture, second portion of the duodenum. 2. Tubular adenoma, second portion of duodenum. 3. Polyp, gastric, biopsied. HISTORY: This is an 84-year-old white female admitted to hospital with history of melena and her hemoglobin and hematocrit dropped. She required 2 units of blood transfusion. After stabilization, EGD was done for diagnostic as well as therapeutic purposes. PROCEDURE IN DETAIL: Informed consent was obtained from the patient. The procedure, risks, benefits, and alternatives were explained in layman's terms. She understood. All the pertinent questions were answered. The patient was brought to the endoscopy unit and was premedicated as per Anesthesia. After adequate sedation, while she was lying in left lateral position, the gastroscope was introduced into the posterior pharynx and advanced under direct vision into the esophagus. Esophagus in its entire length appeared to be normal. No esophagitis, webs, rings, varices were seen. The scope was then passed through the esophagus into the stomach. Stomach was examined both in straight and retroflexed views, which revealed normal cardia and fundus. In the body, a small polyp was seen, which was hyperemic. Biopsy was obtained using cold biopsy forceps, but I did not see any ulcer, AVM, or masses. I did not see any source of active bleeding or stigmata of recent bleed in the stomach. The scope was then passed through the normal pylorus into the duodenal bulb which was normal. However, starting from the junction between the duodenal bulb and the second portion of the duodenum, the mucosa was covered with pearly white nodular mucosa suggestive of tubular adenoma. The entire 2nd portion duodenum was covered with those. At about the mid 2nd portion of duodenum, there was tight stricture noted which was about 8 mm in size. Scope could not be passed through it. The mucosa just adjacent to the stricture appeared to be more erythematous and fleshy suggestive of possible tumor. Multiple biopsies were obtained from that area where tubular adenoma was and also from the area around the stricture. Again the scope could not be passed into the distal 2nd portion of the duodenum. There was some oozing noted at the area of stricture. It stopped on its own. There was a large particulate matter noted in the distal portion duodenum blocking the stricture of the small bowel. Using a Taylor Net, the foreign body was removed without difficulty. The scope was then withdrawn. Patient tolerated the procedure with no complications noted. Patient was then transferred to the recovery area in a stable condition. IMPRESSION: 1. 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 2. Tubular adenoma, second portion of the duodenum. 3. Foreign body, second portion of the duodenum, removed. 4. Gastric polyp, biopsied. RECOMMENDATION: I would continue her proton pump inhibitor. Recheck hemoglobin and hematocrit, transfuse if necessary. In the meantime, will wait for the biopsy. Most likely, she will need definitive treatment. That will be surgical intervention. cc: MD Gal Bernal MD
--- NOTE | 2019-02-10 18:12 | PROGRESS NOTE ---
DATE: 02/10/2019 SUBJECTIVE: The patient is resting comfortably. No acute events noted overnight. OBJECTIVE: Vital signs: Temperature 98 degrees, blood pressure 113/64, heart rate 74, respirations 18, O2 saturation 98% on 3 L nasal cannula. General: This is a morbidly obese female, lying in bed in no acute distress. Heart: S1, S2 normal. Regular rate and rhythm. Lungs: Equal air entry bilaterally. No crackles. No rales. Abdomen: Positive bowel sounds. Soft, obese, nontender, nondistended. Extremities: Decreased erythema noted in both legs. No edema. Neurological: The patient is alert and oriented x3. LABORATORIES: White blood cell count 9.1, hemoglobin 8.5, hematocrit 27, platelets 318. INR 1.2. Sodium 145, potassium 4.4, chloride 116, CO2 of 22, BUN 23, creatinine 1.6, glucose 94. ASSESSMENT AND PLAN: 1. Gastrointestinal bleed. The results of the endoscopy were reviewed. We will continue on the proton pump inhibitor and monitor the hemoglobin and hematocrit closely. 2. Malignant stricture of the duodenum. Biopsies were taken and the pathology is pending. 3. Bilateral lower extremity cellulitis. Continue with antibiotic therapy. 4. Morbid obesity. Aware. 5. Hypertension. Continue on the current antihypertensive regimen. 6. Acute kidney injury. Improved. Continue to monitor closely and avoid nephrotoxic agents. 7. Folate deficiency. Continue with folic acid. 8. Anxiety disorder. Continue with Xanax. 9. Deep vein thrombosis prophylaxis. Continue with SCDs. cc: Jami Cole MD [facility]
[2019-02-10] MEDS: FOLIC ACID 1 MG in NS 50 ML IV SCH (20:57)
[2019-02-11] MEDS: DUONEB (A & A) INH SCH ×6 (03:32→23:05)
[2019-02-11] MEDS: AZACTAM 0.5 GM in NS 50 ML IV SCH ×3 (03:57→20:08)
[2019-02-11 05:23] LABS: HEMATOCRIT 27.3 % (37.0-47.0); HEMOGLOBIN 8.1 g/dL (12.0-16.0); MCH 26.8 PG (27-31); MCHC 29.7 g/dL (33-37); MCV 90.4 FL (81-99); MPV 10.1 FL (7.4-10.4); RBC 3.02 XMIL (4.2-5.4); RDW 17.9 % (11.5-14.5); WBC 10.95 X1000 (4.8-10.8)
[2019-02-11 05:36] LABS: INR 1.26; PROTIME 16.8 Seconds (11.0-16.0)
[2019-02-11 05:59] LABS: CALCIUM 8.2 mg/dL (8.8-10.2); CREATININE 1.5 mg/dL (0.5-0.9); POTASSIUM 5.3 mmol/L (3.5-5.1)
[2019-02-11] MEDS: PULMICORT INH SCH ×2 (07:38→19:21)
[2019-02-11] MEDS: CARAFATE LIQUID PO SCH ×4 (08:40→20:08)
[2019-02-11] MEDS: PROTONIX 80 MG in NS 80 ML IV SCH (08:40)
[2019-02-11] MEDS: ALLEGRA PO SCH (08:41)
[2019-02-11] MEDS: SINGULAIR PO SCH (08:41)
[2019-02-11] MEDS: XANAX PO SCH ×2 (08:41→20:08)
[2019-02-11] MEDS: CENTRUM TABLET PO SCH (08:41)
[2019-02-11] MEDS: FLONASE MISC SCH ×2 (08:54→20:08)
[2019-02-11] MEDS: NON-FORMULARY BULK MED SCH ×2 (08:55→20:08)
[2019-02-11] MEDS: PROTONIX IV SCH ×2 (10:41→20:50)
--- NOTE | 2019-02-11 15:20 | GASTROENTEROLOGY PROGRESS NOTE ---
DATE: 02/11/2019 SUBJECTIVE: The patient had an EGD on 02/10/2019, indications for acute GI bleed, anemia. Findings showed a malignant stricture of the second portion of the duodenum. Most likely the cause of her bleeding, tubular adenoma at second portion of the duodenum, and a foreign body in the second portion of the duodenum that was removed, along with a gastric polyp. Biopsies are pending. OBJECTIVE: Vital Signs: Temperature 99.5 degrees, pulse 67, respirations 19, blood pressure 133/49. General: The patient was resting but aroused easily. No acute distress noted. Laboratory: Hematology: WBC 10.95, hemoglobin 8.1, hematocrit 27.3, MCV 90.4, platelets 296,000. Chemistry: Sodium 146, potassium 5.3, chloride 118, CO2 of 22, BUN 22, creatinine 1.5, glucose 91, calcium 8.2. EGD, operative findings showing malignant stricture of the second portion of the duodenum, tubular adenomatous of the second portion of the duodenum, and foreign body removed, along with gastric polyp. Biopsies were done, awaiting results. PLAN: Continue PPI. Continue symptomatic treatment and supportive care. We will follow pathology results. Further plans will be made as needed. I have discussed this case with Dr. Doshi. Dictated by LATONYA Franz for Rigo Doshi MD cc: LATONYA Moffett MD
--- NOTE | 2019-02-11 16:27 | PROGRESS NOTE ---
DATE: 02/11/2019 SUBJECTIVE: The patient is resting comfortably in bed. She states that she does not feel good today. She could not localize what exactly was bothering her. OBJECTIVE: Vital Signs: Temperature 99.5 degrees, blood pressure 133/49, heart rate 67, respirations 19, O2 saturations 100% on 3 L nasal cannula. General: This is a morbidly obese female lying in bed in no acute distress. Heart: S1, S2. Normal. Lungs: Equal air entry bilaterally. No crackles. No rales. Abdomen: Positive bowel sounds. Soft, nontender, nondistended. Extremities: Trace pedal edema. Neurologic: The patient is alert and oriented x3. LABS: White blood cell count 10, hemoglobin 8.1, hematocrit, hematocrit 27, platelets 296,000. Sodium 146, potassium 5.3, chloride 118, CO2 22, BUN 22, creatinine 1.5, glucose 91. ASSESSMENT AND PLAN: 1. Gastrointestinal bleed. The patient's hemoglobin and hematocrit is stable. Will continue to monitor closely. 2. Malignant stricture of the duodenum status post biopsy. Will await the pathology report. 3. Bilateral lower extremity cellulitis. Continue with antibiotic therapy. 4. Acute kidney injury. Slowly improving. 5. Folate deficiency. Continue with folic acid. 6. Hypertension. Continue on the current antihypertensive regimen. 7. Deep venous thrombosis prophylaxis. Continue with SCDs. cc: Jami Cole MD
[2019-02-11] MEDS: MIRALAX PO SCH (20:08)
[2019-02-11] MEDS: FOLIC ACID 1 MG in NS 50 ML IV SCH (20:08)
[2019-02-12] MEDS: AZACTAM 0.5 GM in NS 50 ML IV SCH ×2 (03:14→16:40)
[2019-02-12] MEDS: DUONEB (A & A) INH SCH ×6 (04:11→23:35)
[2019-02-12 05:31] LABS: BASO# 0.04 X1000 (0.0-0.2); BASO% 0.3 % (0.0-0.8); EOS# 0.25 X1000 (0.0-0.7); EOS% 1.8 % (0.0-10.0); HEMATOCRIT 28.8 % (37.0-47.0); HEMOGLOBIN 8.5 g/dL (12.0-16.0); IMM GRAN# 0.04 X1000 (0.0-0.04); IMM GRAN% 0.3 % (0.0-0.5); LYMPH# 0.94 X1000 (1.2-3.4); LYMPH% 6.9 % (20.5-51.1); MCH 26.2 PG (27-31); MCHC 29.5 g/dL (33-37); MCV 88.9 FL (81-99); MONO# 0.95 X1000 (0.11-0.59); NEUT# 11.44 X1000 (1.4-6.5); NEUT% 83.7 % (42.2-75.2); PLT 258 X1000 (130-400); RBC 3.24 XMIL (4.2-5.4); WBC 13.66 X1000 (4.8-10.8)
[2019-02-12 05:40] LABS: INR 1.2; PROTIME 16.2 Seconds (11.0-16.0)
[2019-02-12 06:02] LABS: CALCIUM 8.5 mg/dL (8.8-10.2); CREATININE 1.3 mg/dL (0.5-0.9); POTASSIUM 4.4 mmol/L (3.5-5.1)
[2019-02-12] MEDS: CARAFATE LIQUID PO SCH ×4 (06:08→20:39)
[2019-02-12 07:09] LABS: URINE SOURCE CLEAN CATCH
[2019-02-12 07:19] LABS: BILIRUBIN URINE NEGATIVE (NEGATIVE); BLOOD URINE NEGATIVE (NEGATIVE); COLOR YELLOW; GLUCOSE URINE NEGATIVE (NEGATIVE); KETONE URINE NEGATIVE (NEGATIVE); LEUKOCYTES URINE MODERATE (NEGATIVE); NITRITE URINE NEGATIVE (NEGATIVE); PH URINE 5.5; PROTEIN URINE TRACE mg/dL (NEGATIVE); SP GRAVITY URINE 1.012; TURBIDITY URINE CLEAR (CLEAR); UROBILINOGEN URINE NORMAL (NORMAL)
[2019-02-12 07:20] LABS: UR EPITHELIAL CELLS <10 /HPF (<10); URINE BACTERIA NEGATIVE /HPF; URINE RBC <10 /HPF (<10)
--- NOTE | 2019-02-12 07:35 | Diag Imaging Result Doc PS360 ---
EXAM: CHEST-PORTABLE 02/12/2019 HISTORY: dyspnea TECHNIQUE: AP portable at 0552 COMMENT: The inspiration is slightly less optimal than on 02/09/2019. Otherwise are has been no significant change in the appearance of the chest considering differences in technique. There may be a mild degree of basilar atelectasis particularly in the right lower lobe. IMPRESSION: Poor inspiration. Subsegmental atelectasis right lower lobe. Electronically signed by Hill Brewster 02/12/2019 7:33 AM
[2019-02-12] MEDS: PULMICORT INH SCH ×2 (07:40→19:22)
[2019-02-12] MEDS: ALLEGRA PO SCH (08:55)
[2019-02-12] MEDS: SINGULAIR PO SCH (08:56)
[2019-02-12] MEDS: CENTRUM TABLET PO SCH (08:56)
[2019-02-12] MEDS: NON-FORMULARY BULK MED SCH ×2 (08:56→20:41)
[2019-02-12] MEDS: XANAX PO SCH ×2 (08:56→20:40)
[2019-02-12] MEDS: FLONASE MISC SCH ×2 (08:56→20:42)
[2019-02-12] MEDS: PROTONIX IV SCH ×2 (08:57→20:40)
[2019-02-12] MEDS: MIRALAX PO SCH (11:41)
[2019-02-12] MEDS ORDERED: NS 250 ML ONE (14:08)
--- NOTE | 2019-02-12 14:49 | PROGRESS NOTE ---
DATE: 02/12/2019 SUBJECTIVE: The patient is resting comfortably. She has no complaints. OBJECTIVE: Vital Signs: Temperature 98.2, blood pressure 135/50, heart rate, respirations 18. O2 sats 100% on 3 L nasal cannula. General: This is a morbidly obese female lying in bed in no acute distress. Heart: S1, S2 normal. Regular rate and rhythm. Lungs: Diminished breath sounds bilaterally. No crackles. No rales. Abdomen: Positive bowel sounds. Soft, obese, nontender, nondistended. Extremities: Decreased erythema in the lower extremities. Trace pedal edema. Neurologic: The patient is alert and oriented x 3. LABS: White blood cell count 13, hemoglobin 8.5, hematocrit 28, platelets 258,000. INR 1.2. Sodium 143, potassium 4.4, chloride 114, CO2 23, BUN 19, creatinine 1.3, glucose 94. ASSESSMENT AND PLAN: 1. Gastrointestinal bleed. This appears to have resolved. 2. Malignant stricture of the duodenum status post biopsy. The pathology report is currently pending. 3. Bilateral lower extremity cellulitis. Continue with antibiotic therapy. 4. Anemia. Stable. 5. Acute kidney injury. Slowly improving. 6. Folate deficiency. Continue with folic acid replacement. 7. Hypertension. Continue on the current antihypertensive regimen. 8. Leukocytosis. The white count has increased today. Will check a urinalysis. 9. DVT prophylaxis. Continue with SCDs. 10. We will consult Physical Therapy. cc: Jami Cole MD
[2019-02-12] MEDS: MYCOSTATIN POWDER TOP SCH ×2 (16:40→20:41)
[2019-02-12] MEDS: FOLIC ACID 1 MG in NS 50 ML IV SCH (20:40)
[2019-02-13] MEDS: AZACTAM 0.5 GM in NS 50 ML IV SCH ×3 (00:55→16:16)
[2019-02-13] MEDS: DUONEB (A & A) INH SCH ×6 (03:05→23:10)
[2019-02-13 05:49] LABS: BASO# 0.04 X1000 (0.0-0.2); BASO% 0.4 % (0.0-0.8); EOS# 0.44 X1000 (0.0-0.7); EOS% 4.8 % (0.0-10.0); HEMATOCRIT 28.3 % (37.0-47.0); HEMOGLOBIN 8.4 g/dL (12.0-16.0); IMM GRAN# 0.02 X1000 (0.0-0.04); IMM GRAN% 0.2 % (0.0-0.5); LYMPH# 0.96 X1000 (1.2-3.4); LYMPH% 10.5 % (20.5-51.1); MCH 26.3 PG (27-31); MCHC 29.7 g/dL (33-37); MCV 88.7 FL (81-99); MONO# 0.86 X1000 (0.11-0.59); MONO% 9.4 % (1.7-9.3); MPV 10.3 FL (7.4-10.4); NEUT# 6.86 X1000 (1.4-6.5); NEUT% 74.7 % (42.2-75.2); PLT 250 X1000 (130-400); RBC 3.19 XMIL (4.2-5.4); RDW 17.9 % (11.5-14.5); WBC 9.18 X1000 (4.8-10.8)
[2019-02-13 06:01] LABS: INR 1.19
[2019-02-13 06:18] LABS: CALCIUM 8.7 mg/dL (8.8-10.2); CREATININE 1.1 mg/dL (0.5-0.9); POTASSIUM 4.2 mmol/L (3.5-5.1)
[2019-02-13] MEDS: CARAFATE LIQUID PO SCH ×4 (06:27→20:51)
[2019-02-13] MEDS: PULMICORT INH SCH ×2 (07:39→19:47)
[2019-02-13] MEDS: SINGULAIR PO SCH (09:04)
[2019-02-13] MEDS: CENTRUM TABLET PO SCH (09:04)
[2019-02-13] MEDS: XANAX PO SCH ×2 (09:04→20:52)
[2019-02-13] MEDS: ALLEGRA PO SCH (09:04)
[2019-02-13] MEDS: NON-FORMULARY BULK MED SCH ×2 (09:05→20:52)
[2019-02-13] MEDS: FLONASE MISC SCH ×2 (09:05→20:53)
[2019-02-13] MEDS: MYCOSTATIN POWDER TOP SCH ×2 (09:05→20:52)
[2019-02-13] MEDS: MIRALAX PO SCH (09:06)
[2019-02-13] MEDS: PROTONIX IV SCH ×2 (09:06→20:52)
--- NOTE | 2019-02-13 16:32 | GASTROENTEROLOGY PROGRESS NOTE ---
DATE: 02/13/2019 SUBJECTIVE: The patient is awake, alert, in no acute distress. She had an EGD on 02/10/2019. Indications were GI bleed and anemia. Findings showed a stricture at the 2nd portion of the duodenum, tubular adenoma 2nd portion of the duodenum and a gastric pyloric. Biopsies were done. Pathology is pending. The patient currently denies complaints. OBJECTIVE: Vital Signs: Temperature 98.0 degrees, pulse 61, respirations 24, blood pressure 114/59. General: The patient is awake, alert, no acute distress. LABORATORY DATA: Hematology: WBC 9.18, hemoglobin 8.4, hematocrit 28.3, MCV 88.7, platelets 250,000. Coagulation: ProTime 16.0, INR 1A1c. Chemistry: Sodium 142, potassium 4.2, chloride 113, CO2 of 22, BUN 15, creatinine 1.1, glucose 85, calcium 8.7. ASSESSMENT AND PLAN: 1. Recent gastrointestinal bleeding and anemia. 2. Esophagogastroduodenoscopy findings showing stricture in the 2nd portion of the duodenum, tubular adenoma in the 2nd portion of the duodenum and gastric polyp. Biopsies are pending. Continue proton pump inhibitor. Continue symptomatic treatment. Supportive care. Will follow up on pathology results and further plans to be made as needed. I have discussed this case with Dr. Doshi. Dictated by LATONYA Franz for Rigo Doshi MD cc: LATONYA Moffett MD
--- NOTE | 2019-02-13 19:47 | PROGRESS NOTE ---
DATE: 02/13/2019 SUBJECTIVE: The patient is resting comfortably in bed. She has no complaints at this time. OBJECTIVE: Vital Signs: Temperature 98.3 degrees, blood pressure 146/66, heart rate 66, respirations 20, O2 saturation 95% on 3 L nasal cannula. General: This is an elderly female lying in bed, no acute distress. Heart: S1, S2 normal. Regular rate and rhythm. Lungs: Clear to auscultation bilaterally. Abdomen: Positive bowel sounds. Soft, obese, nontender, nondistended. Extremities: No edema, no cyanosis. Neurologic: The patient is alert and oriented x3. LABORATORY DATA: White blood cell count 9.1, hemoglobin 8.4, hematocrit 28, platelets 250,000. Sodium 142, potassium 4.2, chloride 113, CO2 22, glucose 85, BUN 15, creatinine 1.1. ASSESSMENT AND PLAN: 1. Gastrointestinal bleed. Resolved. 2. Malignant stricture of the duodenum. 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 We will consult Oncology for further treatment recommendations. 3. Morbid obesity. Aware. 4. Acute kidney injury. Improving daily. 5. Bilateral lower extremity cellulitis. Improved. Continue with antibiotic therapy. 6. Folate deficiency. Continue with folic acid replacement. 7. Hypertension. Continue on the current antihypertensive regimen. 8. Leukocytosis. Resolved. 9. Deep vein thrombosis prophylaxis. Continue with SCDs. 10. Continue with physical therapy. cc: Jami Cole MD
[2019-02-13] MEDS: FOLIC ACID 1 MG in NS 50 ML IV SCH (20:51)
[2019-02-14] MEDS: AZACTAM 0.5 GM in NS 50 ML IV SCH ×3 (00:26→16:12)
[2019-02-14] MEDS: DUONEB (A & A) INH SCH ×6 (03:03→23:08)
[2019-02-14] MEDS: CARAFATE LIQUID PO SCH ×5 (05:37→20:31)
[2019-02-14 06:20] LABS: BASO# 0.04 X1000 (0.0-0.2); BASO% 0.5 % (0.0-0.8); EOS# 0.38 X1000 (0.0-0.7); EOS% 4.5 % (0.0-10.0); HEMATOCRIT 28.7 % (37.0-47.0); HEMOGLOBIN 8.5 g/dL (12.0-16.0); LYMPH# 0.89 X1000 (1.2-3.4); LYMPH% 10.6 % (20.5-51.1); MCH 26.6 PG (27-31); MCHC 29.6 g/dL (33-37); MCV 89.7 FL (81-99); MONO# 0.69 X1000 (0.11-0.59); MONO% 8.2 % (1.7-9.3); MPV 10.5 FL (7.4-10.4); NEUT# 6.39 X1000 (1.4-6.5); NEUT% 76.2 % (42.2-75.2); PLT 231 X1000 (130-400); WBC 8.39 X1000 (4.8-10.8)
[2019-02-14 06:53] LABS: CALCIUM 8.9 mg/dL (8.8-10.2); POTASSIUM 4.6 mmol/L (3.5-5.1)
[2019-02-14] MEDS: PULMICORT INH SCH ×2 (07:59→19:18)
[2019-02-14] MEDS: MIRALAX PO SCH (08:17)
[2019-02-14] MEDS: FLONASE MISC SCH ×2 (08:18→20:31)
[2019-02-14] MEDS: NON-FORMULARY BULK MED SCH ×2 (08:18→20:31)
[2019-02-14] MEDS: MYCOSTATIN POWDER TOP SCH ×2 (08:18→20:31)
[2019-02-14] MEDS: PROTONIX IV SCH ×2 (08:19→20:31)
[2019-02-14] MEDS: SINGULAIR PO SCH (08:21)
[2019-02-14] MEDS: XANAX PO SCH ×2 (08:21→20:31)
[2019-02-14] MEDS: ALLEGRA PO SCH (08:21)
[2019-02-14] MEDS: CENTRUM TABLET PO SCH (08:21)
[2019-02-14] MEDS: D5W 1,000 ML IV SCH (09:45)
--- NOTE | 2019-02-14 17:42 | PROGRESS NOTE ---
DATE: 02/14/2019 SUBJECTIVE: The patient is resting in bed. She has no complaints at this time. OBJECTIVE: Vital Signs: Temperature 98.2 degrees, blood pressure 123/65, heart rate 58, respirations 18, O2 saturations 100% on 3 L nasal cannula, intake 350, output 1.3 L. General: This is a chronically ill-appearing overweight female lying in bed in no acute distress. Heart: S1, S2 normal. Regular rate and rhythm. Lungs: Equal air entry bilaterally. No wheezing. No rales. No rhonchi. Abdomen: Positive bowel sounds. Soft, nontender, nondistended. Extremities: No edema, no cyanosis. Neuro: The patient is alert and oriented x3. LABS: White blood cell count 8.3, hemoglobin 8.5, hematocrit 28, platelets 231,000, sodium 146, potassium 4.6, chloride 115, CO2 23, BUN 13, creatinine 1, glucose 86. ASSESSMENT AND PLAN: 1. Gastrointestinal bleed. Resolved. 2. Adenocarcinoma of the duodenum. Will await further recommendations from the oncologist. 3. Acute kidney injury. Resolved. 4. Morbid obesity. Aware. 5. Bilateral lower extremity cellulitis. Improved. Continue with antibiotic therapy. 6. Folate deficiency. Continue with folic acid replacement. 7. Hypertension. Stable. 8. Deep vein thrombosis prophylaxis. Continue with SCDs. 9. Continue with physical therapy. 10. Disposition. The patient will be discharged to inpatient rehab once medically stable. cc: Jami Cole MD
[2019-02-14] MEDS: FOLIC ACID 1 MG in NS 50 ML IV SCH (20:31)
[2019-02-15] MEDS: AZACTAM 0.5 GM in NS 50 ML IV SCH ×3 (00:01→16:20)
[2019-02-15] MEDS: D5W 1,000 ML IV SCH (01:29)
[2019-02-15] MEDS: DUONEB (A & A) INH SCH ×6 (03:39→22:45)
[2019-02-15 04:57] LABS: ALLEN TEST YES; BE -2.9 mmoll (-3.0-3.0); BLOOD TYPE ARTERIAL; HCO3-(ACT) 22.7 mmoll (20.0-26.0); METHB 1.5 % (0.0-1.5); O2HB 95.1 % (95.0-99.0); PCO2(98.6) 46 mmHg (35-45); PO2(98.6) 84 mmHg (60-100); SAMPLE BLOOD; SAO2 98.7 % (95.0-100.0); THB 6.6 g/dL (11.5-17.4); pH(98.6) 7.31 (7.35-7.45)
[2019-02-15 05:06] LABS: MODALITY CANNULA
[2019-02-15] MEDS: CARAFATE LIQUID PO SCH ×5 (05:54→22:32)
[2019-02-15 06:32] LABS: BASO# 0.05 X1000 (0.0-0.2); BASO% 0.8 % (0.0-0.8); EOS# 0.43 X1000 (0.0-0.7); EOS% 6.9 % (0.0-10.0); HEMATOCRIT 27.4 % (37.0-47.0); HEMOGLOBIN 8.2 g/dL (12.0-16.0); LYMPH# 0.82 X1000 (1.2-3.4); LYMPH% 13.2 % (20.5-51.1); MCH 26.5 PG (27-31); MCHC 29.9 g/dL (33-37); MCV 88.7 FL (81-99); MONO# 0.42 X1000 (0.11-0.59); MONO% 6.8 % (1.7-9.3); MPV 10.2 FL (7.4-10.4); NEUT# 4.47 X1000 (1.4-6.5); NEUT% 72.3 % (42.2-75.2); PLT 205 X1000 (130-400); RBC 3.09 XMIL (4.2-5.4); RDW 17.6 % (11.5-14.5); WBC 6.19 X1000 (4.8-10.8)
[2019-02-15 06:39] LABS: CALCIUM 8.4 mg/dL (8.8-10.2)
[2019-02-15 07:51] LABS: EOS 8 % (1-10); LYMPHS 10 % (21-51); MONO 4 % (1-9); SEGS 78 % (42-75)
[2019-02-15] MEDS: PULMICORT INH SCH ×2 (08:01→19:43)
[2019-02-15] MEDS: SINGULAIR PO SCH (08:09)
[2019-02-15] MEDS: CENTRUM TABLET PO SCH (08:09)
[2019-02-15] MEDS: PROTONIX IV SCH ×2 (08:09→22:32)
[2019-02-15] MEDS: XANAX PO SCH ×2 (08:09→22:32)
[2019-02-15] MEDS: ALLEGRA PO SCH (08:09)
[2019-02-15] MEDS: NON-FORMULARY BULK MED SCH ×2 (08:10→22:36)
[2019-02-15] MEDS: MYCOSTATIN POWDER TOP SCH ×2 (08:10→22:40)
[2019-02-15] MEDS: FLONASE MISC SCH ×2 (08:10→22:36)
[2019-02-15] MEDS: MIRALAX PO SCH (08:11)
[2019-02-15] MEDS ORDERED: LASIX IV ONE (09:12)
--- NOTE | 2019-02-15 12:11 | PROGRESS NOTE ---
DATE: 02/15/2019 SUBJECTIVE: The patient is resting comfortably in bed. She has no complaints at this time. OBJECTIVE: Vital Signs: Temperature 97.4 degrees, blood pressure 124/75, heart rate 70, respirations 20, O2 saturation 98% on 2 L nasal cannula. General: This is a chronically ill- appearing elderly female lying in bed. Heart: S1, S2 normal. Regular rate and rhythm. Lungs: Equal air entry bilaterally. No crackles. No rales. Abdomen: Positive bowel sounds. Soft, obese, nontender, nondistended. Extremities: 1+ edema. No cyanosis. No calf tenderness. Neurologic: The patient is alert and oriented x3. LABORATORIES: Hemoglobin 8.2, hematocrit 27, white blood cell count 6.1, platelets 205,000. Sodium 142, potassium 4, chloride 113, CO2 23, BUN 10, creatinine 1, glucose 95. ASSESSMENT AND PLAN: 1. Gastrointestinal bleed. Resolved. 2. Adenocarcinoma of the duodenum. We will order a CT of the chest, abdomen, and pelvis. Dr. Yates is following. 3. Acute kidney injury. Resolved. 4. Bilateral lower extremity cellulitis. Improved. 5. Morbid obesity. Aware. 6. Hypertension. Stable. 7. Folate deficiency. Continue with folic acid replacement. 8. History of pulmonary embolus. The V/Q scan done on admission showed low probability for pulmonary embolus. 9. Gastrointestinal prophylaxis. Continue on Protonix. 10. Deep vein thrombosis prophylaxis. Continue with SCDs. cc: Jami Cole MD
[2019-02-16] MEDS: DUONEB (A & A) INH SCH ×6 (03:05→23:45)
[2019-02-16] MEDS: CARAFATE LIQUID PO SCH ×5 (05:37→20:23)
[2019-02-16] MEDS: AZACTAM 0.5 GM in NS 50 ML IV SCH ×3 (05:37→20:23)
[2019-02-16 07:35] LABS: HEMOGLOBIN 8.3 g/dL (12.0-16.0); MCH 26.3 PG (27-31); MCHC 29.6 g/dL (33-37); MCV 88.6 FL (81-99); MPV 10.5 FL (7.4-10.4); RBC 3.16 XMIL (4.2-5.4); RDW 17.6 % (11.5-14.5); WBC 5.75 X1000 (4.8-10.8)
[2019-02-16 07:46] LABS: CALCIUM 8.5 mg/dL (8.8-10.2); MAGNESIUM 1.7 mg/dL (1.5-2.7); POTASSIUM 4.1 mmol/L (3.5-5.1)
[2019-02-16] MEDS: PULMICORT INH SCH ×2 (08:00→19:42)
[2019-02-16] MEDS: PROTONIX IV SCH ×2 (09:21→20:22)
[2019-02-16] MEDS: MIRALAX PO SCH (09:21)
[2019-02-16] MEDS: CENTRUM TABLET PO SCH (09:21)
[2019-02-16] MEDS: SINGULAIR PO SCH (09:21)
[2019-02-16] MEDS: ALLEGRA PO SCH (09:21)
[2019-02-16] MEDS: XANAX PO SCH ×2 (09:21→20:23)
[2019-02-16] MEDS: NON-FORMULARY BULK MED SCH ×2 (09:22→20:23)
[2019-02-16] MEDS: FLONASE MISC SCH ×2 (09:24→20:23)
[2019-02-16] MEDS: MYCOSTATIN POWDER TOP SCH ×2 (09:25→20:23)
[2019-02-16] MEDS: D5W 1,000 ML IV SCH ×2 (10:43→23:43)
[2019-02-16] MEDS ORDERED: MAGNESIUM SULFATE 2 GM/S.W.I. 2 GM/50 ML IVPB IV ONE (12:14)
--- NOTE | 2019-02-16 12:49 | HEMO/ONC CONSULTATION ---
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 HISTORY OF PRESENT ILLNESS: Ms. Pool is an 83-year-old female that presented to the emergency department on 02/08/2019 complaining of increased pain in her legs and generalized weakness. The patient says she could not get out of her chair, called EMS at that time. The patient also had been having increased shortness of breath. The patient was supposedly treated last week with antibiotics. The patient does have a history of pulmonary embolism. The patient also had some problems the week before coming in with some mild nausea and vomiting. The patient was admitted at that time for further evaluation and management due to severe anemia from GI blood loss and peptic ulcer disease. While in the emergency department, her hemoglobin and hematocrit was 5.9 and 19.9. Since being admitted, patient has also had an EGD with Gastroenterology and was found to have a stricture 2nd portion of the duodenum, tubular adenoma and biopsies performed at that time, which came back showing moderately differentiated adenocarcinoma. PAST MEDICAL HISTORY: Allergic rhinitis, asthma, and COPD, peptic ulcer disease, GERD, gout, hypertension, depression, chronic kidney disease stage 3, history of pulmonary embolus in 2011, congestive heart failure, and morbid obesity. PAST SURGICAL HISTORY: Hernia repair. SOCIAL HISTORY: Denies any tobacco, alcohol or illicit drug use. FAMILY HISTORY: Myocardial infarction. ALLERGIES: Ceclor, Keflex, doxycycline, erythromycin, penicillin, tetracycline, Endol, codeine, guaifenesin Claritin-D, phenylephrine, phenylpropanolamine, pseudoephedrine, apples, celery, peanuts, and grains. HOME MEDICATIONS: Albuterol, Xanax, bisacodyl, Nae, fish oil, fluticasone, Lasix, lisinopril, Apresoline, Reglan, Nasonex, Singulair, multivitamin, MiraLAX, Carafate, Ultram, Ellipta and Coumadin. REVIEW OF SYSTEMS: Negative other than that mentioned in history of present illness. PHYSICAL EXAMINATION: Vital Signs: Temperature 98 degrees, heart rate 57, respiratory rate 24, blood pressure is 123/69, saturating 100% on nasal cannula. General: Patient is awake, lying in bed, no acute distress noted. HEENT: Anicteric. Pupils PERRLA. Mucous membranes appear dry. Neck: Supple. Trachea midline. No JVD. Lymph node survey: No lymphadenopathy. Cardiovascular: S1, S2. Regular rate and rhythm. Lungs: Bilateral breath sounds clear to auscultation. Abdomen: Soft, nontender. Bowel sounds present in all 4 quadrants. Skin: Warm, dry, and intact. Neurologic: Alert and oriented x3. No focal deficits noted. LABORATORY DATA: White blood cell count 5.75, hemoglobin 8.3, hematocrit 28, platelets 226,000. Potassium 4.1, BUN 11, creatinine 1. ASSESSMENT AND PLAN: 1. Adenocarcinoma of the duodenum: Awaiting CT of the chest, abdomen, and pelvis to see if there is any metastasis at this time. If it is stage IV, due to her age and performance status, it would be difficult for palliative care treatment at that time. We will follow up on those results and make further recommendations. Continue to monitor closely. 2. Anemia: Hemoglobin and hematocrit stable, today hemoglobin 8.3, hematocrit 28. Continue to monitor. Transfuse as needed. 3. Acute kidney injury: Improved or resolved. BUN 11, creatinine 1. Continue recommendations per Primary Medical Team. 4. Morbid obesity: Aware. 5. Hypertension: Stable. 6. History of pulmonary embolism: Aware. 7. Gastrointestinal prophylaxis: Continue recommendations as per Gastroenterology. 8. Deep venous thrombosis prophylaxis: Continue SCDs. Dictated by LATONYA Sevilla for Delroy Yates MD Patient seen and examined. As above. Patient diagnosed to have duodenal adenocarcinoma. Her disease status and prognosis was discussed at length. CT of the abdomen and pelvis was recommended but patient has declined. I discussed duodenal stent placement to prevent obstruction and she has declined. I discussed this with Dr. Cole. Delroy Yates M.D. cc: Delroy Yates MD [facility]
--- NOTE | 2019-02-16 13:34 | PROGRESS NOTE ---
DATE: 02/16/2019 SUBJECTIVE: Ms. Nancy Pool is an 84-year-old female sitting on the side of the bed, about to do physical therapy and walk with a walker. Currently has no complaints today other than the food does not taste that good. OBJECTIVE: Vital signs: Temperature is 98.0, heart rate 57, respiratory rate 24, blood pressure 123/61, O2 saturation is 100% on 3 L nasal cannula. General: The patient is an 84-year-old morbidly obese female sitting comfortably on the bedside with physical therapy. Able to answer questions appropriately. Cardiovascular: S1, S2. Bradycardic rate and rhythm. No rubs, gallops or murmurs. She has 1+ lower extremity edema, plus 2 dorsalis, pedal and radial pulses. Negative JVD or carotid bruits. Pulmonary: Clear to auscultation with bilateral breath sounds. No accessory muscle use or work of breathing noted. GI: Soft, nontender and nondistended. Positive bowel sounds x4. Skin: Warm, dry and intact, stage 1 on the sacrum. Inner dry skin folds due to yeast. DIAGNOSTIC DATA: White blood cells 5000, hemoglobin 8, hematocrit 28, platelet count 226. Sodium is 146, potassium 4.1, BUN is 11, creatinine 1.0, glucose 82, calcium 8.5, phosphorus 3.5, magnesium 1.7. IMAGING: No new imaging. ASSESSMENT AND PLAN: 1. Gastrointestinal bleed, resolved. 2. 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 Dr. Yates has been following as well. There is an order for a CT of the chest, abdomen and pelvis, but the patient adamantly refuses to have a CAT scan performed due to severe anxiety. 3. Acute kidney injury, resolved. 4. Bilateral lower extremity cellulitis, improved. TEDs in place. 5. Morbid obesity. No changes. She is trying to get up and do more physical activity, currently with physical therapy. 6. Hypertension, stable. Currently not on any antihypertensives, and her blood pressure highest is 154, but it is primarily in the 120s and 130s. 7. Folate deficiency. Continue with folic acid replacement. 8. History of pulmonary emboli. VQ scan negative for PE. When she was admitted, she was on Eliquis, and that is still being held. 9. Deconditioning. Again, continue with physical therapy. 10.Code status is do not resuscitate level 1. Also Palliative Care onboard today was consulted. 11.Gastrointestinal prophylaxis with Protonix. 12.DVT prophylaxis with SCDs and TEDs. 13.Stage 1 sacral decubitus and no open wound from that, also with yeast under skin folds with Wound Care recommending sacral foam dressing and InterDry to underneath the skin folds. Those recommendations were back on 02/09/2019. DISCHARGE DISPOSITION: Likely [facility], and she has a reported power of banking attorney who is her cousin, Mary Daily, and contact information is under nursing notes as well as case management notes. Dictated by LATONYA Haro for Jami Cole MD cc: LATONYA Haro MD I performed a face to face encounter on the patient. I reviewed all labs on the patient. I agree with the assessment and plan as dictated. The patient continues to refuse to have a CT to stage her recently diagnosed duodenal adenocarcinoma. Will await her decision regarding possible duodenal stent placement. Palliative care is following. MTDD
--- NOTE | 2019-02-16 16:47 | GASTROENTEROLOGY PROGRESS NOTE ---
DATE: 02/16/2019 SUBJECTIVE: The patient was working with physical therapy. She had gotten up in a chair. The patient was also seen by Dr. Doshi at the time of evaluation. Findings from pathology results were discussed with the patient. Pathology findings from EGD showed a small bowel biopsy villoglandular adenoma with area of adenocarcinoma moderately differentiated, tubular adenoma, with villus features in the small bowel, and a hyperplastic polyp in the stomach. The patient has been seen by Dr. Yates. OBJECTIVE: Vital Signs: Temperature 98.7 degrees, pulse 62, respirations 20, blood pressure 143/66. General: The patient is awake and alert. She is sitting up in a chair in no acute distress. LABORATORY: Hematology: WBC 5.75, hemoglobin 8.3, hematocrit 28.0, MCV 88.6, platelets 226,000. Chemistry: Sodium 146, potassium 4.1, chloride 112, CO2 26, BUN 11, creatinine 1.0, glucose 82. ASSESSMENT AND PLAN: 1. Recent gastrointestinal bleeding with anemia. 2. Esophagogastroduodenoscopy finding showing a stricture in the second portion of the duodenum, tumor adenoma in the second portion of duodenum and gastric polyp. Pathology came back showing villoglandular adenoma with area of adenocarcinoma, moderately differentiated in the small bowel along with tubular adenoma and villus features, and a hyperplastic polyp in the stomach. Dr. Doshi has discussed the findings and pathology with the patient. He recommends consulting Surgical associates for their recommendation. Also continue following with Dr. Yates regarding their recommendation. Further plans to be made as needed. We will continue to follow and further plans will be made as needed. Dictated by LATONYA Franz for Rigo Doshi MD cc: LATONYA Moffett MD [facility]
[2019-02-17] MEDS: D5W 1,000 ML IV SCH (03:10)
[2019-02-17] MEDS: DUONEB (A & A) INH SCH ×6 (03:50→23:47)
[2019-02-17] MEDS: AZACTAM 0.5 GM in NS 50 ML IV SCH ×3 (05:35→22:28)
[2019-02-17 07:18] LABS: HEMATOCRIT 27.9 % (37.0-47.0); HEMOGLOBIN 8.3 g/dL (12.0-16.0); MCHC 29.7 g/dL (33-37); MCV 90.9 FL (81-99); RBC 3.07 XMIL (4.2-5.4); RDW 17.6 % (11.5-14.5); WBC 5.9 X1000 (4.8-10.8)
[2019-02-17 07:40] LABS: ALB/GLOB RATIO 0.9; ALBUMIN 2.8 g/dL (3.5-5.0); CALCIUM 8.3 mg/dL (8.8-10.2); CREATININE 0.9 mg/dL (0.5-0.9); POTASSIUM 3.8 mmol/L (3.5-5.1); TOTAL BILIRUBIN 0.36 mg/dL (0.20-1.00); TOTAL PROTEIN 5.9 g/dL (6.3-8.3)
[2019-02-17] MEDS: PULMICORT INH SCH ×2 (08:01→19:45)
[2019-02-17] MEDS: CARAFATE LIQUID PO SCH ×4 (08:03→22:31)
[2019-02-17] MEDS: MIRALAX PO SCH (08:52)
[2019-02-17] MEDS: XANAX PO SCH ×2 (08:52→22:29)
[2019-02-17] MEDS: ALLEGRA PO SCH (08:52)
[2019-02-17] MEDS: CENTRUM TABLET PO SCH (08:52)
[2019-02-17] MEDS: PROTONIX IV SCH ×2 (08:52→22:29)
[2019-02-17] MEDS: SINGULAIR PO SCH (08:52)
[2019-02-17] MEDS: MYCOSTATIN POWDER TOP SCH ×2 (08:56→22:30)
[2019-02-17] MEDS: FLONASE MISC SCH ×2 (08:57→22:30)
[2019-02-17] MEDS: NON-FORMULARY BULK MED SCH ×2 (08:58→22:29)
--- NOTE | 2019-02-17 09:37 | HEMO/ONC PROGRESS NOTE ---
DATE: 02/17/2019 SUBJECTIVE: The patient denies any complaints at this time. The patient says she is slowly feeling better. The patient denies any new complaints. OBJECTIVE: Vital Signs: Temperature 99.2 degrees, heart rate 59, respiratory rate 21, blood pressure 132/72, satting 100% on nasal cannula. General: Patient is awake, sitting up in chair, no acute distress noted. HEENT: Anicteric. Pupils PERRLA. Mucous membranes moist. Cardiovascular: S1, S2. Regular rate and rhythm. Chest: Bilateral breath sounds. Clear to auscultation. Abdomen: Soft, nontender. Bowel sounds present all 4 quadrants. Neurologic: Alert and oriented x3. No focal deficits noted. LABORATORY DATA: White cell count 5.90, hemoglobin 8 with hematocrit 27.9, platelets are 204. Potassium 3.8. BUN 18, creatinine 0.9. ASSESSMENT AND PLAN: 1. Adenocarcinoma of the duodenum: The patient declines any further testing or treatment at this time. Continue to monitor. Continue medication per primary medical team. 2. Anemia: Hemoglobin and hematocrit continues to be stable. Today, hemoglobin is 7.2, hematocrit 27.9. Continue to monitor. Transfuse as needed. 3. Acute kidney injury: This is resolved. 4. Deep venous thrombosis prophylaxis: Continue SCD. Continue the patient getting out of bed as much as possible. Dictated by LATONYA Sevilla for Delroy Yates MD Patient seen and examined. As above. Today patient has decided that she will undergo duodenal stent placement. She has declined CT of the abdomen and pelvis. We will get Dr. Moore to proceed with procedure. Delroy Yates M.D. cc: Delroy Yates MD [facility]
--- NOTE | 2019-02-17 13:26 | GASTROENTEROLOGY PROGRESS NOTE ---
DATE: 02/17/2019 SUBJECTIVE: Patient is lying in bed in no acute distress. She has refused CT scan for further evaluation of adenocarcinoma of the small bowel. [facility] was [facility]. The patient states she does not want surgery. She was also given the option of a stent placement for palliative measures. She is thinking about proceeding with that option. OBJECTIVE: Vital Signs: Temperature 98.2 degrees, pulse 63, respirations 22, blood pressure 133/59. Generally, patient is awake, alert, no acute distress. Abdomen is soft. Positive bowel sounds. Nontender. LABORATORY DATA: Hematology: WBC 5.90, hemoglobin 8.3, hematocrit 27.9, MCV 90.9, platelets 204,000. Chemistry: Sodium 140, potassium 3.8, chloride 107, CO2 of 32, BUN 10, creatinine 0.9, glucose 96, total bilirubin 0.36, AST 26, ALT 11, alkaline phosphatase 83. ASSESSMENT AND PLAN: 1. Recent gastrointestinal bleeding. 2. Anemia. Continue to monitor and transfuse packed red blood cells if needed. 3. Adenocarcinoma of the small bowel. The patient does not wish to proceed with surgery. She does not want to have a CT scan due to anxiety related to claustrophobia. She is contemplating allowing a possible duodenal stent placement for palliative measures. I have discussed this case with Dr. Doshi, and further plans will be made as needed. Dictated by LATONYA Franz for Rigo Doshi MD cc: LATONYA Moffett MD
--- NOTE | 2019-02-17 14:38 | PROGRESS NOTE ---
DATE: 02/17/2019 SUBJECTIVE: The patient has no major complaints. She is still refusing any imaging but she has agreed to stent placement. OBJECTIVE: Vital Signs: Blood pressure 133/59, heart rate 63, respiratory rate 22, and temperature 98.2. Cardiovascular: Regular rate and rhythm. Pulmonary: Bilateral breath sounds clear to auscultation. GI: Abdomen is soft, nontender, and nondistended. Bowel sounds are positive. LABORATORY DATA: White count is 5, hemoglobin and hematocrit 8 and 27, and platelets 204. Basic was normal. PROBLEM LIST: 1. Gastrointestinal bleed which has resolved. She seems to be doing okay. Hemoglobin and hematocrit is stable. 2. Duodenal adenocarcinoma. Recommending stent placement which she has agreed to. She still refuses any CTs to discover any staging. Her ultrasound shows cirrhosis versus hepatic steatosis and gallstones. 3. Anemia. Hemoglobin and hematocrit has been basically stable for the last several days. We will continue to follow. 4. Hypertension, stable. Continue regular medications. 5. History of pulmonary embolus. She had a VQ scan which was negative. She had been on Eliquis previously but we have held that because of the bleeding issues. We need to decide about resuming that at some point. At this point, we are not anticoagulating her because of concern over bleeding and again she refuses CT staging and she does not want chemotherapy. I am not even really sure if she would go through surgery if that was her only treatment option but we do not know and she refuses to get other treatment so we will continue to follow. DISPOSITION: Once the stent is placed I anticipate that we can discharge her to rehab. She is currently on aztreonam for her E. coli, which she is allergic to Keflex. It is sensitive to Macrobid and Zosyn and Bactrim are options by mouth because she is allergic to every medication. Macrobid and Bactrim are really the 2 options. It looks like the stent will not be placed until . Per Dr. Doshi it has to be ordered so it will be a little bit longer but after stent placement I anticipate that she could potentially be discharged. cc: Cedrick Lundy MD
[2019-02-18] MEDS: DUONEB (A & A) INH SCH ×6 (04:07→23:26)
[2019-02-18] MEDS: AZACTAM 0.5 GM in NS 50 ML IV SCH ×3 (06:38→20:22)
[2019-02-18] MEDS: CARAFATE LIQUID PO SCH ×4 (06:39→20:22)
[2019-02-18 07:49] LABS: BASO# 0.05 X1000 (0.0-0.2); BASO% 0.8 % (0.0-0.8); EOS# 0.32 X1000 (0.0-0.7); EOS% 5.2 % (0.0-10.0); HEMATOCRIT 28.9 % (37.0-47.0); HEMOGLOBIN 8.4 g/dL (12.0-16.0); IMM GRAN# 0.02 X1000 (0.0-0.04); IMM GRAN% 0.3 % (0.0-0.5); LYMPH# 0.71 X1000 (1.2-3.4); LYMPH% 11.5 % (20.5-51.1); MCH 26.1 PG (27-31); MCHC 29.1 g/dL (33-37); MCV 89.8 FL (81-99); MONO# 0.53 X1000 (0.11-0.59); MONO% 8.6 % (1.7-9.3); MPV 10.7 FL (7.4-10.4); NEUT# 4.52 X1000 (1.4-6.5); NEUT% 73.6 % (42.2-75.2); PLT 232 X1000 (130-400); RBC 3.22 XMIL (4.2-5.4); RDW 17.8 % (11.5-14.5); WBC 6.15 X1000 (4.8-10.8)
[2019-02-18 08:03] LABS: CREATININE 0.9 mg/dL (0.5-0.9); POTASSIUM 4.4 mmol/L (3.5-5.1)
[2019-02-18] MEDS: PULMICORT INH SCH ×2 (08:12→19:55)
[2019-02-18] MEDS: MIRALAX PO SCH (08:35)
[2019-02-18] MEDS: SINGULAIR PO SCH (08:36)
[2019-02-18] MEDS: ALLEGRA PO SCH (08:36)
[2019-02-18] MEDS: PROTONIX IV SCH (08:37)
[2019-02-18] MEDS: CENTRUM TABLET PO SCH (08:37)
[2019-02-18] MEDS: XANAX PO SCH ×2 (08:37→20:22)
--- NOTE | 2019-02-18 09:01 | HEMO/ONC PROGRESS NOTE ---
DATE: 02/18/2019 SUBJECTIVE: The patient has no new complaints at this time. The patient denies any pain. OBJECTIVE: General: Patient awake, sitting up in chair, no acute distress noted. HEENT anicteric. Mucous membranes moist. Cardiovascular S1, S2. Regular rhythm and rate. Chest bilateral breath sounds clear to auscultation. Abdomen soft, nontender. Bowel sounds present in all 4 quadrants. Neurologic alert x3. No focal deficits noted. LABORATORY DATA: White blood cell count 6.15, hemoglobin 8.4, hematocrit 28.9, platelets are 232. Sodium 146, potassium 4.4, BUN 9, creatinine 0.9. ASSESSMENT AND PLAN: 1. Carcinoma of the duodenum: The patient has refused CT of the abdomen and pelvis. The patient is agreeable to go ahead with stent. Continue to monitor at this time. Continue recommendations per Gastroenterology for stent. 2. Anemia: Hemoglobin and hematocrit continue to be stable. Continue to monitor. Transfuse as needed. 3. Deep venous thrombosis prophylaxis. Continue sequential compression devices. Continue patient get up as much possible. Plan of care is discussed with Dr. Yates. Dictated by LATONYA Sevilla for Delroy Yates MD cc: LATONYA Sevilla MD [facility]
[2019-02-18] MEDS: MYCOSTATIN POWDER TOP SCH ×2 (12:09→20:23)
[2019-02-18] MEDS: FLONASE MISC SCH ×2 (12:09→20:23)
[2019-02-18] MEDS: NON-FORMULARY BULK MED SCH ×2 (12:09→20:22)
--- NOTE | 2019-02-18 15:25 | PROGRESS NOTE ---
DATE: 02/18/2019 SUBJECTIVE: She has no major complaints. OBJECTIVE: Vital signs: Blood pressure 130/51, heart rate is 65, respiratory rate 21, temperature 98.2 degrees, 100% on 3 L. General: She is sitting up in bed. She is doing okay. Cardiovascular: Regular rate and rhythm. Pulmonary: Bilateral breath sounds. Clear to auscultation. GI: Soft, nontender, nondistended. Bowel sounds are positive. LABORATORY DATA: White count 6, hemoglobin and hematocrit 8 and 28, platelets 232,000. Sodium 146. PROBLEM LIST: 1. Gastrointestinal bleed which has resolved. Hemoglobin and hematocrit are stable. 2. Duodenal adenocarcinoma. We are planning for duodenal stent tomorrow per Dr. Doshi, if the equipment is available. 3. Anemia associated with acute blood loss. Has also been stable. 4. History of pulmonary embolism. She is not currently anticoagulated because of bleeding risk, so we will continue to manage long-term. She may need some sort of anticoagulation but I am reluctant to pursue that now. 5. Escherichia coli urinary tract infection. She is currently on aztreonam. Macrobid and Bactrim are options. I think we will discharge her on Bactrim once she stabilizes. We will continue to follow. cc: Cedrick Lundy MD
--- NOTE | 2019-02-18 16:10 | GASTROENTEROLOGY PROGRESS NOTE ---
DATE: 02/18/2019 SUBJECTIVE: Patient is awake and alert. She is eating lunch. She is tolerating a full liquid diet. Patient has agreed to proceed with EGD and possible duodenal stent placement. That is planned for tomorrow if this stent comes in. OBJECTIVE: Vital Signs: Temperature 98.2 degrees, pulse 65, blood pressure 130/51. General: Patient is awake, alert, no acute distress. Abdomen: Soft, nontender. Positive bowel sounds. LABORATORY: Hematology: WBC 6.15, hemoglobin 8.4, hematocrit 28.9, MCV 89.8, platelets 232,000. Chemistry: Sodium 146, potassium 4.4, chloride 112, CO2 28, BUN 9, creatinine 0.9, glucose 83, calcium 9.0. ASSESSMENT AND PLAN: 1. Carcinoma of the duodenum. Patient will undergo EGD with possible duodenal stent placement tomorrow. Further plans will be made as needed. 2. Anemia. Continue to monitor hemoglobin and hematocrit and transfuse packed red blood cells as needed. 3. I have discussed the procedure along with benefits and risks with the patient and she wishes to proceed. Further plans will be made as needed. I have discussed this case with Dr. Doshi. Dictated by LATONYA Franz for Rigo Doshi MD cc: LATONYA Moffett MD
[2019-02-18] MEDS: D5 1/2 NS 1,000 ML IV SCH (17:31)
[2019-02-18] MEDS: PRILOSEC PO SCH (20:22)
[2019-02-19] MEDS: AZACTAM 0.5 GM in NS 50 ML IV SCH ×3 (04:12→20:38)
[2019-02-19] MEDS: CARAFATE LIQUID PO SCH ×4 (04:13→20:38)
[2019-02-19] MEDS: DUONEB (A & A) INH SCH ×6 (05:22→23:50)
[2019-02-19] MEDS: PULMICORT INH SCH ×2 (07:37→19:53)
[2019-02-19 07:55] LABS: BASO# 0.07 X1000 (0.0-0.2); BASO% 1.2 % (0.0-0.8); EOS# 0.35 X1000 (0.0-0.7); EOS% 5.8 % (0.0-10.0); HEMATOCRIT 27.6 % (37.0-47.0); LYMPH# 0.74 X1000 (1.2-3.4); LYMPH% 12.3 % (20.5-51.1); MCH 26.1 PG (27-31); MCV 90.2 FL (81-99); MONO# 0.52 X1000 (0.11-0.59); MONO% 8.6 % (1.7-9.3); MPV 10.2 FL (7.4-10.4); NEUT# 4.35 X1000 (1.4-6.5); NEUT% 72.1 % (42.2-75.2); PLT 224 X1000 (130-400); RBC 3.06 XMIL (4.2-5.4); RDW 17.6 % (11.5-14.5); WBC 6.03 X1000 (4.8-10.8)
[2019-02-19] MEDS: D5 1/2 NS 1,000 ML IV SCH (08:14)
[2019-02-19 09:39] LABS: CALCIUM 8.7 mg/dL (8.8-10.2); CREATININE 0.9 mg/dL (0.5-0.9); POTASSIUM 4.3 mmol/L (3.5-5.1)
[2019-02-19] MEDS: PRILOSEC PO SCH ×2 (11:00→20:38)
[2019-02-19] MEDS: XANAX PO SCH ×2 (11:01→20:38)
[2019-02-19] MEDS ORDERED: XYLOCAINE-MPF 2% ONE (12:12)
[2019-02-19] MEDS ORDERED: DIPRIVAN 1% ONE ×5 (12:12→13:31)
[2019-02-19] MEDS ORDERED: FENTANYL ONE (12:13)
[2019-02-19] MEDS ORDERED: VERSED ONE (12:50)
[2019-02-19] MEDS ORDERED: GLUCAGON ONE (13:37)
--- NOTE | 2019-02-19 14:11 | Diag Imaging Result Doc PS360 ---
FLUROSCOPY - C-ARM - 02/19/2019 INDICATION: PLACEMENT OF DUODENAL STENT TECHNIQUE: The exam was performed by the patient's endoscopist. 10 images were obtained. COMPARISON: None FINDINGS: There was placement of a duodenal stent in apparently good position. IMPRESSION: No complication. Electronically signed by Brandan Pryor 02/19/2019 2:09 PM
[2019-02-19] MEDS: ZOFRAN IV PRN ×2 (14:48→20:38)
--- NOTE | 2019-02-19 14:54 | OPERATIVE NOTE ---
PROCEDURE DATE: 02/19/2019 PROCEDURE PERFORMED: Esophagogastroduodenoscopy, dilation of duodenal stricture, and duodenal stent placement. MEDICATION USED: MAC as per Anesthesia. SCOPE USED: Pentax gastroscope and Pentax colonoscope. 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 HISTORY: This is an 84-year-old, white female who was admitted to the hospital with acute GI bleed and anemia secondary to gastrointestinal bleed. EGD done earlier had shown evidence of a stricture in the second portion of the duodenum. There was adenocarcinoma in the second portion of the duodenum. There was some tubular adenoma there too. Because of her comorbid condition, the patient carries a very high risk for surgical intervention. After discussion with the surgery, oncology, it was decided to place a duodenal stent for palliative purposes. DESCRIPTION OF PROCEDURE: Informed consent was obtained from the patient. Multiple discussions were made risks of, but not limited to bleeding, perforation, aspiration, pneumonia, and perforation were explained. She understood and agreed to proceed. Patient was brought to the endoscopy unit and was premedicated as per Anesthesia. After adequate sedation, while she was lying in the left lateral position, the gastroscope was introduced into the posterior pharynx and advanced under direct vision into the esophagus. Esophagus in its entire length appeared to be normal. No esophagitis, webs, rings, or varices were seen. The scope was then passed through the esophagus, in the stomach. Stomach was examined briefly and scope was passed through the normal pylorus, into the duodenal bulb, and then second portion of the duodenum where the stricture was noted and marked. A guidewire was passed through the scope, into the duodenum, through the stricture, all the way to the second portion of the duodenum. Then I used a balloon and dilated the stricture up to 8 mm. After the dilation, a 9 cm, 9-Chadian stent was placed, bridging the stricture without any difficulty. Good placement was noticed. The stent was traversing the stricture. The scope was then removed. Patient tolerated the procedure well. No complications noted. Patient was then transferred to the recovery area in a stable condition. IMPRESSION: 1. Duodenal stricture, second portion of the duodenum. 2. Adenocarcinoma of the duodenum. Stent placed. RECOMMENDATION: The plan would be to continue current treatment. Continue her on a clear liquid diet and advance diet as tolerated. She would benefit from softer GI diet rather than a regular diet. We will proceed with a barium upper GI upper to confirm the placement and patency of the stricture of the duodenum. I have explained the findings and plan. Patient understands and all pertinent questions were answered. cc: Rigo Doshi MD
[2019-02-19] MEDS: SINGULAIR PO SCH (15:42)
[2019-02-19] MEDS: ALLEGRA PO SCH (15:42)
[2019-02-19] MEDS: NON-FORMULARY BULK MED SCH ×2 (15:43→20:39)
[2019-02-19] MEDS: MIRALAX PO SCH (15:43)
[2019-02-19] MEDS: MYCOSTATIN POWDER TOP SCH ×2 (15:43→20:39)
[2019-02-19] MEDS: CENTRUM TABLET PO SCH (15:43)
[2019-02-19] MEDS: FLONASE MISC SCH ×2 (15:44→20:38)
--- NOTE | 2019-02-19 16:09 | DISCHARGE SUMMARY ---
ADMISSION DATE: 02/08/2019 DISCHARGE DATE: DISCHARGE DIAGNOSES: 1. Duodenal obstruction, adenoma of duodenum. 2. Upper gastrointestinal bleed. 3. Chronic obstructive pulmonary disease. 4. GERD. 5. Chronic renal failure. 6. History of PE in 2011. PROCEDURES: 1. Endoscopy and EGD with biopsy 02/10. 2. Repeat EGD with stent placement and duodenum on the . CONSULTATIONS: Gastroenterology Dr. Doshi. HISTORY: Briefly, this is an 84-year-old female patient of Dr. Villeda, Dr. Hartley, and Dr. Lainez who presents with weakness and fatigue. She was found to have an hemoglobin and hematocrit of 5.9 and 19.9. She had an INR of 2.37. She has a history of PE. We attempted to try to do a workup of the PE, but I think that was negative. She had a V/Q scan on the that was low probability. She had lower extremity venous Doppler's that were negative for DVT. She had an abdominal ultrasound that showed some cholelithiasis and then possible steatohepatitis and cirrhosis. Renal ultrasound was negative. The patient was evaluated by GI, and placed on Protonix, and evaluated by GI. She received a total of 3 units of packed red blood cells. GI consultation with operative note revealed a duodenal mass and stricture of the duodenum, a tubular adenoma and a polyp, but the pathology unfortunately revealed a villoglandular adenoma with adenocarcinoma moderately differentiated on the small bowel. Other issues were small bowel biopsy, tubular adenoma and hyperplastic gastric polyp but was not malignant. Discussions were had about treatment. The patient adamantly refused. She did not want chemo. She did not want surgery, and she would not even pursue staging. She felt that if it was positive, possible that she had issues with cancer, she would not want treatment in any case. Therefore, refused a CT scan due to concern over claustrophobia. Her hemoglobin and hematocrit was stable 8 and 27. After transfusion, it never really went down. I unfortunately did not feel that we could safely resume her anticoagulation especially since she has a source of bleeding potentially, although this may need to be considered long-term. Patient did acquiesce to having a stent placed, which was done on the day of discharge per Dr. Doshi. Dr. Yates was also consulted due to malignancy. However, she really refused any treatment, and if it was metastatic, she would not likely do very well. If it was limited to that area, surgery is potentially curative, but she did want to go through that at all. In any case, she will be started on full liquids and followed. DISCHARGE MEDICATIONS: 1. Reglan 10 at bedtime. 2. Mucinex 600 q.12, 3. Nae 180 daily. 4. Hydralazine 25 daily. 5. Carafate 1 g t.i.d. 6. Fish Oil 1 t.i.d. 7. Umclinidium 62.5 micrograms inhaled daily 8. Lasix 80 daily. 9. Lisinopril 20 daily. 10. MiraLAX 527 g daily, which I do not think that is viable; it should be 17. 11. Multivitamin daily. 12. Nasonex b.i.d. 13. PATANASE 30 b.i.d. 14. Singulair 10 daily. 15. Albuterol 2 puffs q.6. 16. Veramyst. 17. Xanax 0.5 b.i.d. p.r.n. 18. Bactrim 1 p.o. b.i.d. 19. Prilosec 40 b.i.d. for 2 weeks and then daily. 20. Pulmicort 0.5 daily. 21. Ultram 50 b.i.d. p.r.n. pain. DISCHARGE CONDITION: Stable. TIME SPENT: 32 minute discharge. DISPOSITION: Plan to discharge to rehab facility. cc: MD Gal Gray MD Naveen T. Lobo, MD Khurshid Yousuf, MD MTDD
[2019-02-19] MEDS: MORPHINE IV PRN ×2 (16:54→22:18)
[2019-02-20] MEDS: ZOFRAN IV PRN ×2 (03:54→13:07)
[2019-02-20] MEDS: DUONEB (A & A) INH SCH ×4 (04:34→15:47)
[2019-02-20] MEDS: D5 1/2 NS 1,000 ML IV SCH ×2 (05:36→15:45)
[2019-02-20] MEDS: CARAFATE LIQUID PO SCH ×3 (05:37→19:04)
[2019-02-20] MEDS: AZACTAM 0.5 GM in NS 50 ML IV SCH ×2 (05:37→15:46)
[2019-02-20] MEDS: PULMICORT INH SCH (07:40)
--- NOTE | 2019-02-20 11:25 | DISCHARGE SUMMARY ---
ADMISSION DATE: 02/08/2019 DISCHARGE DATE: 02/20/2019 ADDENDUM: The day of discharge, she is doing okay. She has been tolerating p.o. okay. She had some nausea, vomiting yesterday so or at least discomfort. Her vital signs are stable. Abdominal exam is stable. No new labs today. She is going to get a barium swallow. If that looks stable, patent, I think anticipate discharge today. Discharge summary was completed yesterday. cc: Cedrick Lundy MD
--- NOTE | 2019-02-20 13:17 | DISCHARGE SUMMARY ---
ADMISSION DATE: 02/08/2019 DISCHARGE DATE: 02/20/2019 LENGTH OF STAY: 12 days. ADMITTING DIAGNOSES: 1. Severe anemia with iron deficiency and possible anemia from gastrointestinal blood loss with peptic ulcer disease history. 2. Acute kidney injury on chronic kidney disease stage 3. 3. History of pulmonary emboli. 4. Leukocytosis. 5. Hyperglycemia. 6. Asthma and chronic obstructive pulmonary disease. 7. Hypertension. 8. Gastroesophageal reflux disease with peptic ulcer disease. 9. Bilateral lower extremity cellulitis. 10.Depression. 11.Allergic rhinitis. 12.Morbid obesity with a body mass index of 38.6. 13.Progressive weakness. 14.Sacral decubitus stage 1. DISCHARGE DIAGNOSES: 1. Duodenal obstruction due to adenoma of the duodenum. 2. Upper gastrointestinal bleed. 3. Chronic obstructive pulmonary disease. 4. Gastroesophageal reflux disease. 5. Chronic kidney disease stage 3. 6. History of pulmonary emboli in 2011. 7. Escherichia coli urinary tract infection, on aztreonam. CONSULTATIONS: 1. Dr. Doshi for severe anemia. 2. Dr. Yates for small bowel adenocarcinoma of the duodenum. 3. Palliative Care consult. 4. Wound Care consult. SURGERIES OR PROCEDURES: 1. On 02/10/[address] Doshi, the patient had an EGD with biopsy which showed strictures of second portion of the duodenum, tubular adenoma of second portion of the duodenum, polyp gastric biopsied. Also a foreign body in second portion of duodenum was removed. 2. On 02/19/[address] Doshi, EGD for dilatation of duodenal stricture and duodenal stent placements due to that. No carcinoma. HOSPITAL COURSE: On 02/08/2019, Ms. Nancy Pool, an 84-year-old female with a history of morbid obesity, COPD, peptic ulcer disease, pulmonary emboli on Coumadin therapy, which was diagnosed in 2011, presented with complaints of 6 to 8 months' worth of weakness and fatigue that had been progressively worsening. Due to the inability to actually get enough strength to get out of the chair, she called paramedics which brought her here because she lives alone. She had complaints of her legs being a achy, more swollen, a little more red. There were no open wounds there. She complained of sacral wound, but that was a stage 1. She was followed by Wound Care for that. Apparently she complained of black stools for years and denied any bright red blood, but around 1 or 2 weeks ago was having issues with vomiting and diarrhea, this was prior to admission. Her hemoglobin and hematocrit upon presentation were 5.9 and 19.9 with hemodynamics stable. Her INR was 2.37 due to being on Coumadin for her pulmonary emboli. The Gastroccult was actually negative. She essentially refused CAT scans or any type of imaging due to her anxiety. Her Coumadin was reversed with vitamin K. She was given 2 units of packed red blood cells. She had leukocytosis. She did have some likely lower extremity cellulitis. She was sent to [facility] for closer observation. Gastroenterology was consulted, and she had acute kidney injury with CKD stage 3. Although there were no signs of urinary tract infection, she did have E. coli result that had several resistances including ampicillin, sulbactam, gentamicin and Levaquin, and intermediate to tobramycin. But she was also allergic to several antibiotics as well. All other blood cultures and urine cultures prior to discharge came back negative. She was seen by Dr. Doshi who then performed an EGD twice, the first time to diagnose the adenocarcinoma of the duodenum and the second time to place a stent in the duodenum. A VQ scan was performed on 02/08/2019 with low probability. She had lower extremity Dopplers that were negative for DVT. Discussions about treatment. She had Dr. Yates that was consulted. She did not want chemotherapy. She did not want surgery. After receiving blood, her hemoglobin and hematocrit remained stable at 8 and 27. Anticoagulation was never resumed. She was advanced in her diet. Vitals were stable, and it was safe to determine discharge home. DISCHARGE VITAL SIGNS: Temperature is 98.1, heart rate 65, respiratory rate 18, blood pressure 138/76, O2 saturation is 100% on 2 L nasal cannula. DISCHARGE LAB DATA: White blood cells 6000, hemoglobin 8, hematocrit 27, platelet count 224. Sodium is 145, potassium 4.3, BUN is 9, creatinine 0.9, glucose 90 and calcium 8.7. PERTINENT IMAGING: Chest x-ray with cardiomegaly, this was on admission. On VQ scan, low probability for pulmonary emboli. Renal ultrasound with no evidence of obstructive uropathy. It did show cholelithiasis. Extremity venous study with no DVTs, but there was some reflux in the right common femoral vein. Abdominal ultrasound with cholelithiasis, splenomegaly, hepatitic steatosis versus cirrhosis. Chest x-ray on 02/09/2019 persistent cardiomegaly with pulmonary edema. Chest x-ray on 02/12/2019 poor inspiration, subsegmental atelectasis of the right lower lobe. The fluoroscopy on 02/19/2019 for stent placement, there was placement of duodenal stent and apparently good position and no complications. DISCHARGE MEDICATIONS: 1. Reglan 10 mg p.o. nightly. 2. Mucinex 600 mg p.o. every 12 hours. 3. Nae 180 mg daily. 4. Apresoline 25 mg p.o. daily. 5. Carafate 1 g p.o. t.i.d. 6. Fish oil 3 times daily. 7. Incruse Ellipta 1 puff inhaled daily. 8. Lasix 80 mg p.o. daily. 9. Lisinopril 20 mg p.o. daily. 10.Multivitamin with iron 1 p.o. daily. 11.Nasonex 1 nasal spray twice daily. 12.Patanase twice daily. 13.Singulair 10 mg p.o. daily. 14.Albuterol (Ventolin) 2 puffs inhaled every 6 hours p.r.n. 15.Veramyst 4.5 g twice daily. 16.Xanax 0.5 mg p.o. twice daily. 17.Bactrim DS 1 tab p.o. twice daily. 18.Prilosec 40 mg p.o. twice daily for 2 weeks and then daily. 19.Pulmicort 0.5 mg inhaled twice daily. 20.Ultram 50 mg p.o. twice daily. DISCHARGE DIET: Full liquid, advance as tolerated. DISCHARGE ACTIVITY: She will have physical therapy and rehab. PHYSICIAN FOLLOWUPS: Dr. Gal Lainez, Dr. Doshi and Dr. Yates. DISCHARGE INSTRUCTIONS: If your condition changes, contact your physician and/or return to the emergency department. Changes may include but are not limited to shortness of breath, increased fatigue, excessive bleeding, unexplained weight loss or gain, unimaginable pain, signs or symptoms of infection. DISCHARGE DISPOSITION: [facility] for rehabilitation. Dictated by LATONYA Haro for Cedrick Lundy MD cc: GelyLATONYA Antonio MD
--- NOTE | 2019-02-20 13:34 | GASTROENTEROLOGY PROGRESS NOTE ---
DATE: 02/20/2019 SUBJECTIVE: Patient had an EGD on 02/19/2019 due to duodenal stricture and adenocarcinoma of the duodenum. Duodenal stricture was dilated and a duodenal stent was placed. Currently patient is waiting on barium swallow for confirmation of stent placement. Initially patient went down for the x-ray and she refused the test. She came back up to the room. I have discussed with her the necessity to evaluate the stent placement before she is able to be discharged. We will try again for the patient to have this test done. OBJECTIVE: Vital Signs: Temperature 98.1 degrees, pulse 65, respirations 18, blood pressure 138/76. General: Patient is awake and alert, no acute distress. She has oxygen by nasal cannula in place. She states that if she lays down she gets short of breath. Abdomen: Soft, nontender. Positive bowel sounds. LABORATORY: Hematology: WBC 6.03, hemoglobin 8.0, hematocrit 27.6, MCV 90.2, platelets 224. Chemistry: Sodium 145, potassium 4.3, chloride 112, CO2 27. BUN 19, creatinine 0.9, glucose 908, calcium 8.7. 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 Patient has refused surgery. Esophagogastroduodenoscopy and duodenal stent placement was done yesterday. We will confirm placement today. I believe once she is stable to be discharged, there are plans for her to go to [facility]. Will follow up on the x-ray results and, once confirmation is verified, as far as Gastroenterology is concerned, she can be discharged. I have discussed this case with Dr. Doshi. Note: I have spoken with Dr. Spangler. Duodenal stent is in place. She will need to continue with full liquid diet due to duodenal stent. Dictated by LATONYA Franz for Rigo Doshi MD cc: LATONYA Moffett MD [facility]
--- NOTE | 2019-02-20 13:48 | Diag Imaging Result Doc PS360 ---
EXAM: GI SERIES WITH BA SWALLOW INDICATION: upper GI to check duodenal stent placement TECHNIQUE: This study is somewhat limited as the patient could not be placed in a supine position. The study was performed while the patient was seated. Water-soluble iodinated contrast was administered orally and images of the stomach and proximal small bowel were obtained. No esophageal images could be obtained. COMPARISON: None. FINDINGS: The recently placed duodenal stent is identified on agricultural research engineer images. Barium passed through the duodenal stent and entered small bowel distal to it indicating that it is patent. No abnormal contrast extravasation was appreciated on these limited images. IMPRESSION: Patent duodenal stent as described. Electronically signed by Jesús Spangler 02/20/2019 1:46 PM
[2019-02-20] MEDS: ALLEGRA PO SCH (13:54)
[2019-02-20] MEDS: XANAX PO SCH (13:55)
[2019-02-20] MEDS: CENTRUM TABLET PO SCH (13:56)
[2019-02-20] MEDS: SINGULAIR PO SCH (13:56)
[2019-02-20] MEDS: PRILOSEC PO SCH (13:57)
[2019-02-20] MEDS: MIRALAX PO SCH (13:57)
[2019-02-20] MEDS: FLONASE MISC SCH (15:45)
[2019-02-20] MEDS: NON-FORMULARY BULK MED SCH (15:45)
[2019-02-20] MEDS: MYCOSTATIN POWDER TOP SCH (15:46)
[2019-02-20 16:19] VITALS: BP 136/75
== END 2019-02-20 19:57 | DRG 375 ==
LOC: SUPCPDRO → ED 05:52 → SUATTDRO 10:30 → 3S 10:30 → 3N 02-15 09:51
PROVIDERS: ATTEND Internal Medicine
CPT/HCPCS: 36430; 36569; 71010; 71045; 74246; 76000; 76700; 76770; 78582; 80048; 80053; 80061; 81001; 82270; 82570; 82607; 82728; 82746; 82805; 82948; 83036; 83540; 83550; 83605; 83615; 83721; 83735; 83880; 84100; 84156; 84300; 84443; 84540; 85014; 85018; 85025; 85027; 85045; 85379; 85610; 85730; 86850; 86900; 86901; 86920; 87040; 87077; 87088; 87186; 87205; 88305; 88312; 88313; 93005; 93010; 93306; 93970; 94640; 94761; 94799; 96365; 97110; 97162; 97530; 99285; A9270; A9539; A9540; C1726; C8929; C9113; J1610; J1756; J1940; J2250; J2270; J2405; J3010; J3430; J3475; J7030; J7050; J7070; P9016; Q9957; S0073; S0164; XXXXX